=== PATIENT | male | born 1950 | race Caucasian/White ===

== ENCOUNTER → 2016-09-15 | Outpatient (CLI) | payer OTHER ==
[2016-09-15 14:45] LABS: Blood Urea Nitrogen 14 mg/dL (9-20); Non-African American GFR(MDRD) >60 (>60 ml/min/1.73 sqM)
--- NOTE | 2016-09-15 15:30 | CT ---
EXAMINATION TYPE: CT ChestAbdPelvis w con DATE OF EXAM: 09/15/2016 3:18 PM COMPARISON: 06/26/2016 HISTORY: History of lung cancer. Per patient progress check. CT DLP: 1127.2 mGycm CONTRAST: CT scan of the chest, abdomen and pelvis is performed with Oral Contrast and with IV Contrast, patien t injected with 100 mL of Omnipaque 300. CT Chest: LUNGS: Right suprahilar mass with mediastinal invasion is again noted and currently measures 6.5 x 4. 0 x 6.6 cm versus 5.2 x 4.5 x 6.4 cm. Early necrotic changes are felt to be present. Again noted is m arked narrowing of the superior vena cava. There is abrupt cut off of the right upper lobe bronchus. No additional nodules or masses seen. Mild emphysematous changes identified. No evidence for pleural effusion. MEDIASTINUM: Thoracic aorta is of normal caliber. The heart is not enlarged. No evidence for media stinal mass or adenopathy. HILAR STRUCTURES: No evidence for mass. No hilar adenopathy is appreciated. OTHER: No significant abnormality. CONTRAST CT ABDOMEN AND PELVIS FINDINGS: LIVER/GB: Hyperdense lesion at the dome of the liver measures 2.3 cm and appears unchanged relative t o the prior study. No additional space-occupying lesions are seen of the liver. This could reflect a hemangioma or metastatic lesion is not excluded. PANCREAS: No inflammation. No distinct mass. SPLEEN: No splenic enlargement. No lesion seen. ADRENALS: Enlarging left adrenal nodule measures 2.4 cm and is compatible metastatic lesion. KIDNEYS/BLADDER: No hydronephrosis. No nephrolithiasis. Subcentimeter renal cortical cysts noted. B OWEL: Normal appendix. Normal bowel caliber. No inflammation. GENITAL ORGANS: No gross abnormality. LYMPH NODES: No greater than 1cm abdominal or pelvic lymph nodes are appreciated. AORTA: No significant abnormality. OSSEOUS STRUCTURES: No significant abnormality is seen. OTHER: No significant additional abnormality is seen. IMPRESSION: 1. Right suprahilar mass with mediastinal invasion as discussed appears to be slightly larger in the interval. 2. New Left adrenal metastatic lesion noted. 3. Stable enhancing lesion at the dome of the liver could reflect hemangioma. Metastatic deposit is n ot excluded.
== END | disposition home or self-care (01) ==
LOC: RADPROMAIN 13:42
PROVIDERS: ATTEND Internal Medicine Hematology & Oncology
DX: C34.90 Malignant neoplasm of unspecified part of unspecified bronchus or lung (principal); C79.72 Secondary malignant neoplasm of left adrenal gland; K76.9 Liver disease, unspecified
CPT/HCPCS: 82565; 84520; 71260; 74177; Q9967

== ENCOUNTER → 2016-10-07 | Outpatient (CLI) | payer OTHER ==
--- NOTE | 2016-10-08 09:17 | PE ---
EXAMINATION TYPE: PET CT fusion whole body DATE OF EXAM: 10/07/2016 10:13 AM CLINICAL HISTORY: 66-year-old male lung cancer, initial staging. TECHNIQUE: Following the intravenous administration of 15.68 mCi of F-18 FDG, whole body images are performed from the skull base to the midthigh. Images are reviewed on the computer in the coronal, axial, and sagittal planes. Reconstructed rotating images are created on independent workstation and reviewed on the computer. A localization and attenuation correction CT is performed in conjunction with the PET scan. Glucose level: 117 mg/dL COMPARISON: CT 09/15/2016 and 06/26/2016 FINDINGS: PET: Photopenia in the left occipital lobe suggests prior infarct. Near-complete opacification of the right maxillary sinus with associated mild inflammatory FDG uptake . Foci of increased FDG uptake at the left shoulder is suspected to relate to tear of the infraspinatus tendon and rotator cuff tendinopathy. There is some fatty atrophy of the left infraspinatus muscle b sae. Large left suprahilar mass cuts off the right upper lobe bronchus and measures up to 7.4 cm with poss ible invasion of the mediastinum as there is loss of the fat plane with the pulmonary artery and SVC. The mass also has mass effect narrowing the middle lobe bronchus. Very intense hypermetabolism, maxi mal SUV 12. There is nodular post obstructive infiltrate within the right upper lobe that shows minimal inflammat ory FDG uptake. Scattered nonenlarged mediastinal lymph nodes do not show any increased FDG uptake. 1.9 cm hypodense lesion within the hepatic dome shows no discrete FDG uptake suggestive of a cyst. 3.2 cm left adrenal gland mass shows very intense FDG uptake, maximal SUV 16.7. Variable moderate to intense colonic activity and scattered small bowel activity as well likely physi ologic muscular activity. There is increased FDG uptake at the left greater than right gluteal insertions suggesting insertiona l gluteal tendinopathy. ATTENUATION CORRECTION CT: No cervical lymphadenopathy. Mastoid air cells well pneumatized. Right anterior chest wall injection port with catheter tip at the mid SVC level. Heart is normal size without pericardial effusion. Coronary vessel calcifications are present and are a marker for coronary artery disease. Borderline ectasia of the ascending aorta 3.6 cm. No dilated small bowel, free fluid, or free air. Descending colonic diverticulosis without acute dive rticulitis. Mild atherosclerotic calcifications within the abdominal aorta without aneurysm. 3 mm non obstructive calculus right kidney. Bladder is nondistended. Prostate gland mildly enlarged at 4.8 cm wide with calcifications. No abnorm al fluid collection in the pelvis or pelvic lymphadenopathy. Bones: Degenerative changes at the hips and mid to lower lumbar spine with endplate spondylosis mid t o lower thoracic spine. No osseous destructive process. IMPRESSION: 1. 7.4 cm intensely hypermetabolic right suprahilar neoplasm cutting off the right upper lobe bronchu s and narrowing the right middle lobe bronchus. There is mild postobstructive pneumonitis in the righ t upper lobe. 2. Very intensely hypermetabolic 3.2 cm left adrenal gland mass suspicious for metastatic disease. 3. Old left occipital lobe infarct, severe chronic right maxillary sinusitis, descending colonic dive rticulosis, nonobstructive right renal calculus, and mild prostatomegaly.
== END | disposition home or self-care (01) ==
LOC: RADPETMAIN 07:42
PROVIDERS: ATTEND Internal Medicine Hematology & Oncology
DX: C34.11 Malignant neoplasm of upper lobe, right bronchus or lung (principal); J18.9 Pneumonia, unspecified organism; N20.0 Calculus of kidney; N40.0 Benign prostatic hyperplasia without lower urinary tract symptoms
CPT/HCPCS: 78816; A9552

== ENCOUNTER 2016-11-03 11:29 | Emergency (ER) | payer MEDICARE, BC ==
--- NOTE | 2016-11-03 12:28 | ED ---
General Adult HPI - General Chief complaint: Neuro Symptoms/Deficit Stated complaint: loss of vision, Time Seen by Provider: 11/03/16 11:58 Source: patient, family, RN notes reviewed, old records reviewed Mode of arrival: ambulatory Limitations: no limitations - History of Present Illness Initial comments: This is a 66-year-old male to the ER for evaluation of possible perception alteration. Patient states he has history of similar symptoms in the past. Patient has history of CVA TIA. I blood pressure. Patient has no trauma. No fevers or cough congestion. No other neurological deficits besides of depth perception. - Related Data Home Medications Medication Instructions Recorded Confirmed Acetaminophen Tab [Tylenol] 500 mg PO Q4H PRN 11/03/16 11/04/16 Amiodarone [Cordarone] 100 mg PO DAILY 11/03/16 11/04/16 Atorvastatin [Lipitor] 80 mg PO HS 11/03/16 11/04/16 Furosemide [Lasix] 20 mg PO DAILY 11/03/16 11/04/16 Gabapentin [Neurontin] 300 mg PO BID 11/03/16 11/04/16 HYDROcodone/APAP 5-325MG [[place] 1 tab PO Q6HR PRN 11/03/16 11/04/16 5-325] Lisinopril [Zestril] 30 mg PO DAILY 11/03/16 11/04/16 Prochlorperazine [Compazine] 10 mg PO Q6H PRN 11/03/16 11/04/16 Temazepam [Restoril] 15 mg PO HS 11/03/16 11/04/16 metFORMIN HCL 1,000 mg PO BID 11/03/16 11/04/16 Dexamethasone [Hexadrol] 4 mg PO QID 11/04/16 11/04/16 amLODIPine BESYLATE [Norvasc] 5 mg PO DAILY 11/04/16 11/04/16 Allergies Allergy/AdvReac Type Severity Reaction Status Date / Time No Known Allergies Allergy Verified 11/04/16 11:48 Review of Systems ROS Statement: Those systems with pertinent positive or pertinent negative responses have been documented in the HPI. ROS Other: All systems not noted in ROS Statement are negative. Past Medical History Past Medical History: Atrial Fibrillation, Coronary Artery Disease (CAD), CVA/ TIA, Diabetes Mellitus, Hyperlipidemia, Hypertension Additional Past Medical History / Comment(s): LUNG MASS-LUNG CANCER 03/2016 History of Any Multi-Drug Resistant Organisms: None Reported Past Surgical History: No Surgical Hx Reported Past Psychological History: No Psychological Hx Reported Smoking Status: Former smoker Past Alcohol Use History: None Reported Past Drug Use History: None Reported General Exam Limitations: no limitations General appearance: alert, in no apparent distress Head exam: Present: atraumatic, normocephalic, normal inspection Eye exam: Present: normal appearance, PERRL, EOMI. Absent: scleral icterus, conjunctival injection, periorbital swelling ENT exam: Present: normal exam, mucous membranes moist Neck exam: Present: normal inspection. Absent: tenderness, meningismus, lymphadenopathy Respiratory exam: Present: normal lung sounds bilaterally. Absent: respiratory distress, wheezes, rales, rhonchi, stridor Cardiovascular Exam: Present: regular rate, normal rhythm, normal heart sounds. Absent: systolic murmur, diastolic murmur, rubs, gallop, clicks GI/Abdominal exam: Present: soft, normal bowel sounds. Absent: distended, tenderness, guarding, rebound, rigid Extremities exam: Present: normal inspection, full ROM, normal capillary refill. Absent: tenderness, pedal edema, joint swelling, calf tenderness Back exam: Present: normal inspection Neurological exam: Present: alert, oriented X3, CN II-XII intact Psychiatric exam: Present: normal affect, normal mood Skin exam: Present: warm, dry, intact, normal color. Absent: rash Course Vital Signs 11/03/16 11/03/16 11/03/16 11:39 13:15 14:26 Temperature 98.5 F 98.0 F Pulse Rate 87 91 81 Respiratory 16 18 20 Rate Blood Pressure 178/78 161/95 162/83 O2 Sat by Pulse 94 L 96 96 Oximetry - Reevaluation(s) Reevaluation #1: Patient is not having any worsening of neurological deficit, able to ambulate Medical Decision Making - Medical Decision Making 66 male here with known stage IV CVA, patient states that he has known cancer, he is terminal and is now an 8 treatment and is now be staying in the hospital. Discussed with patient's family and patient regarding symptoms, patient will follow-up with his oncologist as directed - Lab Data Result diagrams: 11/03/16 12:24 11/03/16 12:24 Lab Results 03/11/03/16 11/03/16 Range/Units 12:24 12:24 12:24 WBC 6.6 (3.8-10.6) k/uL RBC 3.74 L (4.30-5.90) m/uL Hgb 13.0 (13.0-17.5) gm/dL Hct 39.6 (39.0-53.0) % MCV 105.8 H (80.0-100.0) fL MCH 34.7 (25.0-35.0) pg MCHC 32.8 (31.0-37.0) g/dL RDW 12.9 (11.5-15.5) % Plt Count 200 (150-450) k/uL Neutrophils % 69 % Lymphocytes % 18 % Monocytes % 7 % Eosinophils % 2 % Basophils % 1 % Neutrophils # 4.6 (1.3-7.7) k/uL Lymphocytes # 1.2 (1.0-4.8) k/uL Monocytes # 0.5 (0-1.0) k/uL Eosinophils # 0.1 (0-0.7) k/uL Basophils # 0.0 (0-0.2) k/uL Macrocytosis Slight PT (9.0-12.0) sec INR (<1.1) APTT (22.0-30.0) sec Sodium 141 (137-145) mmol/L Potassium 4.3 (3.5-5.1) mmol/L Chloride 99 (98-107) mmol/L Carbon Dioxide 29 (22-30) mmol/L Anion Gap 13 mmol/L BUN 14 (9-20) mg/dL Creatinine 0.92 (0.66-1.25) mg/dL Est GFR (MDRD) Af Amer >60 (>60 ml/min/1.73 sqM) Est GFR (MDRD) Non-Af >60 (>60 ml/min/1.73 sqM) Glucose 97 (74-99) mg/dL Calcium 9.5 (8.4-10.2) mg/dL Phosphorus 4.0 (2.5-4.5) mg/dL Magnesium 1.7 (1.6-2.3) mg/dL Total Bilirubin 0.8 (0.2-1.3) mg/dL AST 22 (17-59) U/L ALT 29 (21-72) U/L Alkaline Phosphatase 116 (38-126) U/L Total Creatine Kinase 72 (55-170) U/L CK-MB (CK-2) 1.1 (0.0-2.4) ng/mL CK-MB (CK-2) Rel Index 1.5 Troponin I <0.012 (0.000-0.034) ng/mL Total Protein 8.5 H (6.3-8.2) g/dL Albumin 4.4 (3.5-5.0) g/dL 11/03/16 Range/Units 12:24 WBC (3.8-10.6) k/uL RBC (4.30-5.90) m/uL Hgb (13.0-17.5) gm/dL Hct (39.0-53.0) % MCV (80.0-100.0) fL MCH (25.0-35.0) pg MCHC (31.0-37.0) g/dL RDW (11.5-15.5) % Plt Count (150-450) k/uL Neutrophils % % Lymphocytes % % Monocytes % % Eosinophils % % Basophils % % Neutrophils # (1.3-7.7) k/uL Lymphocytes # (1.0-4.8) k/uL Monocytes # (0-1.0) k/uL Eosinophils # (0-0.7) k/uL Basophils # (0-0.2) k/uL Macrocytosis PT 10.4 (9.0-12.0) sec INR 1.0 (<1.1) APTT 25.9 (22.0-30.0) sec Sodium (137-145) mmol/L Potassium (3.5-5.1) mmol/L Chloride (98-107) mmol/L Carbon Dioxide (22-30) mmol/L Anion Gap mmol/L BUN (9-20) mg/dL Creatinine (0.66-1.25) mg/dL Est GFR (MDRD) Af Amer (>60 ml/min/1.73 sqM) Est GFR (MDRD) Non-Af (>60 ml/min/1.73 sqM) Glucose (74-99) mg/dL Calcium (8.4-10.2) mg/dL Phosphorus (2.5-4.5) mg/dL Magnesium (1.6-2.3) mg/dL Total Bilirubin (0.2-1.3) mg/dL AST (17-59) U/L ALT (21-72) U/L Alkaline Phosphatase (38-126) U/L Total Creatine Kinase (55-170) U/L CK-MB (CK-2) (0.0-2.4) ng/mL CK-MB (CK-2) Rel Index Troponin I (0.000-0.034) ng/mL Total Protein (6.3-8.2) g/dL Albumin (3.5-5.0) g/dL - Radiology Data Radiology results: report reviewed (CT brain is positive for brain metastasis), image reviewed Disposition Clinical Impression: Brain metastasis Disposition: HOME SELF-CARE Condition: Good Instructions: Self Care Measures With Cancer (ED) Referrals: Jassi Simmons DO [Primary Care Provider] - 1-2 days
[2016-11-03 12:44] LABS: Basophils % (A) 1 %; CH 35.1; CHCM 33.3; Eosinophils # (A) 0.1 k/uL (0-0.7); Eosinophils % (A) 2 %; HCT 39.6 % (39.0-53.0); HDW 2.38; Luc # (Auto) 0.27; Luc % (Auto) 4; Lymphocytes # (A) 1.2 k/uL (1.0-4.8); Lymphocytes % (A) 18 %; MCH 34.7 pg (25.0-35.0); MCHC 32.8 g/dL (31.0-37.0); MCV 105.8 fL (80.0-100.0); Macrocytosis Slight; Mean Platelet Volume 7.3; Monocytes # (A) 0.5 k/uL (0-1.0); Monocytes % (A) 7 %; Neutrophils # (A) 4.6 k/uL (1.3-7.7); Neutrophils % (A) 69 %; RBC 3.74 m/uL (4.30-5.90); RDW 12.9 % (11.5-15.5); WBC 6.6 k/uL (3.8-10.6); WBC (Perox) 6.56
[2016-11-03 12:49] LABS: Partial Thromboplastin Time 25.9 sec (22.0-30.0); Prothrombin Time 10.4 sec (9.0-12.0)
[2016-11-03 12:59] LABS: ALT 29 U/L (21-72); AST 22 U/L (17-59); Alkaline Phosphatase 116 U/L (38-126); Anion Gap 13 mmol/L; Blood Urea Nitrogen 14 mg/dL (9-20); Calcium 9.5 mg/dL (8.4-10.2); Carbon Dioxide 29 mmol/L (22-30); Chloride 99 mmol/L (98-107); Glucose 97 mg/dL (74-99); Magnesium 1.7 mg/dL (1.6-2.3); Non-African American GFR(MDRD) >60 (>60 ml/min/1.73 sqM); Potassium 4.3 mmol/L (3.5-5.1); Sodium 141 mmol/L (137-145); Total Bilirubin 0.8 mg/dL (0.2-1.3); Total Protein 8.5 g/dL (6.3-8.2)
[2016-11-03 13:03] LABS: Creatine Kinase 72 U/L (55-170)
[2016-11-03 13:15] LABS: Creatine Kinase MB 1.1 ng/mL (0.0-2.4); Troponin I <0.012 ng/mL (0.000-0.034)
--- NOTE | 2016-11-03 13:30 | CT ---
EXAMINATION TYPE: CT brain wo con DATE OF EXAM: 11/03/2016 1:20 PM COMPARISON: Prior brain MRI April, head CT 28 March 2016 HISTORY: c/o vision loss, weakness CT DLP: 1072.3 mGycm Automated exposure control for dose reduction was used. FINDINGS: The area of low attenuation in the medial aspect of the left occipital lobe is again noted. There is a new dense focus present at the posterior parietal location with surrounding low attenuation compati ble with local edema and mass. The mass measures 3.5 cm in diameter and there is mass effect on the l eft lateral ventricle. There is effacement of the overlying sulci. No evident hydrocephalus. Opacification right maxillary sinus is present. Inflammatory change also present in the ethmoid air c ells on the right. The orbits show symmetric appearance. IMPRESSION: There is a new mass in the posterior parietal region on the left. Results relayed to Dr. Mcgarry, tel ephonically at the time of interpretation exam
[2016-11-03] MEDS ORDERED: DEXAMETHASONE SOD PHOSPHATE 10 MG/ML 1 ML VIAL IV STA (14:16)
[2016-11-03 14:27] VITALS: BP 162/83; PULSE 81; RESP 20; TEMP 98
== END 2016-11-03 14:32 | disposition home or self-care (01) ==
LOC: EC 11:29
DX: C79.31 Secondary malignant neoplasm of brain (principal); C34.90 Malignant neoplasm of unspecified part of unspecified bronchus or lung; I10 Essential (primary) hypertension; E78.5 Hyperlipidemia, unspecified; I48.91 Unspecified atrial fibrillation; E11.9 Type 2 diabetes mellitus without complications; I25.10 Atherosclerotic heart disease of native coronary artery without angina pectoris; Z87.891 Personal history of nicotine dependence; Z79.84 Long term (current) use of oral hypoglycemic drugs; Z79.899 Other long term (current) drug therapy
CPT/HCPCS: 99284; 36415; 80053; 82550; 82553; 83735; 84100; 84484; 85025; 85610; 85730; 70450; 96374; J1100

== ENCOUNTER 2016-11-03 23:26 | Inpatient (IN) | payer OTHER, MEDICARE ==
--- NOTE | 2016-11-03 23:53 | ED ---
Neuro HPI - General Chief Complaint: Neuro Symptoms/Deficit Stated Complaint: Leg Numbness and Tingling Time Seen by Provider: 11/03/16 23:27 Source: patient, EMS Mode of arrival: EMS Limitations: no limitations - History of Present Illness Is the patient presenting with stroke symptoms?: Yes Last Known Well Date: 11/03/16 Last Known Well Time: 12:00 -: hour(s) Initial Comments: This patient is a 66-year-old man who presents to be evaluated after he started developing some right sided weakness, mainly of the right leg, limiting his ability to walk. The patient had been seen earlier in the day and was found to have probable metastatic cancer to the brain. The patient was started on dexamethasone and did go home. Patient believes that after taking the dexamethasone he started developing these symptoms and returns to be evaluated. The patient also describes having a numb or tingling sensation. No change in vision, speech, swallowing. Location: right leg History of same: No Place: home Severity: mild Quality: weak Improves With: none Worsens With: none - Related Data Home Medications: Home Medications Medication Instructions Recorded Confirmed Acetaminophen Tab [Tylenol Tab] 500 mg PO Q4H PRN 11/03/16 11/04/16 Amiodarone [Cordarone] 100 mg PO DAILY 11/03/16 11/04/16 Atorvastatin [Lipitor] 80 mg PO HS 11/03/16 11/04/16 Furosemide [Lasix] 20 mg PO DAILY 11/03/16 11/04/16 Gabapentin [Neurontin] 300 mg PO BID 11/03/16 11/04/16 HYDROcodone/APAP 5-325MG [[place] 1 tab PO Q6HR PRN 11/03/16 11/04/16 5-325] Lisinopril [Zestril] 30 mg PO DAILY 11/03/16 11/04/16 Prochlorperazine [Compazine] 10 mg PO Q6H PRN 11/03/16 11/04/16 Temazepam [Restoril] 15 mg PO HS 11/03/16 11/04/16 metFORMIN HCL 1,000 mg PO BID 11/03/16 11/04/16 Previous Rx's Medication Instructions Recorded Dexamethasone Oral [Decadron Oral] 10 mg PO Q4HR 7 Days 11/03/16 Allergies/Adverse Reactions: Allergies Allergy/AdvReac Type Severity Reaction Status Date / Time No Known Allergies Allergy Verified 11/03/16 13:03 Review of Systems ROS Statement: Those systems with pertinent positive or pertinent negative responses have been documented in the HPI. ROS Other: All systems not noted in ROS Statement are negative. Constitutional: Denies: fever, chills Eyes: Denies: vision change ENT: Denies: hearing loss Respiratory: Denies: cough, dyspnea Cardiovascular: Denies: chest pain, syncope Gastrointestinal: Denies: abdominal pain, vomiting, diarrhea Genitourinary: Denies: dysuria, hematuria Musculoskeletal: Denies: back pain Skin: Denies: rash Neurological: Reports: weakness (Right lower extremity), paresthesias. Denies: headache, numbness, confusion, abnormal gait General Exam Limitations: no limitations General appearance: alert, in no apparent distress Head exam: Present: atraumatic, normocephalic, normal inspection Eye exam: Present: normal appearance. Absent: scleral icterus, conjunctival injection ENT exam: Present: normal oropharynx Neck exam: Present: normal inspection, full ROM Respiratory exam: Present: normal lung sounds bilaterally. Absent: respiratory distress, wheezes, rales Cardiovascular Exam: Present: regular rate, normal rhythm, normal heart sounds. Absent: systolic murmur, diastolic murmur, rubs, gallop GI/Abdominal exam: Absent: distended, tenderness, guarding, rebound Extremities exam: Present: normal inspection, normal capillary refill. Absent: pedal edema, calf tenderness Back exam: Absent: CVA tenderness (R), CVA tenderness (L) Neurological exam: Present: alert, oriented X3, CN II-XII intact, motor sensory deficit (There is 4 out of 5 strength to the right lower extremity, the left is normal.) Skin exam: Present: warm, dry, intact, normal color. Absent: rash Stroke MDM - Lab Data Result diagrams: 11/04/16 00:01 11/04/16 00:01 Lab Results 11/04/16 11/04/16 11/04/16 Range/Units 00:01 00:01 00:01 WBC 7.3 (3.8-10.6) k/uL RBC 3.83 L (4.30-5.90) m/uL Hgb 13.3 (13.0-17.5) gm/dL Hct 40.7 (39.0-53.0) % MCV 106.4 H (80.0-100.0) fL MCH 34.8 (25.0-35.0) pg MCHC 32.7 (31.0-37.0) g/dL RDW 13.2 (11.5-15.5) % Plt Count 211 (150-450) k/uL Neutrophils % 89 % Lymphocytes % 8 % Monocytes % 2 % Eosinophils % 1 % Basophils % 0 % Neutrophils # 6.5 (1.3-7.7) k/uL Lymphocytes # 0.6 L (1.0-4.8) k/uL Monocytes # 0.1 (0-1.0) k/uL Eosinophils # 0.0 (0-0.7) k/uL Basophils # 0.0 (0-0.2) k/uL Macrocytosis Moderate PT (9.0-12.0) sec INR (<1.1) APTT (22.0-30.0) sec Sodium 139 (137-145) mmol/L Potassium 4.7 (3.5-5.1) mmol/L Chloride 99 (98-107) mmol/L Carbon Dioxide 23 (22-30) mmol/L Anion Gap 17 mmol/L BUN 19 (9-20) mg/dL Creatinine 0.90 (0.66-1.25) mg/dL Est GFR (MDRD) Af Amer >60 (>60 ml/min/1.73 sqM) Est GFR (MDRD) Non-Af >60 (>60 ml/min/1.73 sqM) Glucose 175 H (74-99) mg/dL Calcium 9.8 (8.4-10.2) mg/dL Magnesium 1.8 (1.6-2.3) mg/dL Troponin I <0.012 (0.000-0.034) ng/mL Urine Color Urine Appearance (Clear) Urine pH (5.0-8.0) Ur Specific [place] (1.001-1.035) Urine Protein (Negative) Urine Glucose (UA) (Negative) Urine Ketones (Negative) Urine Blood (Negative) Urine Nitrite (Negative) Urine Bilirubin (Negative) Urine Urobilinogen (<2.0) mg/dL Ur Leukocyte Esterase (Negative) Urine RBC (0-5) /hpf Urine WBC (0-5) /hpf Ur Squamous Epith Cells (0-4) /hpf Urine Mucus (None) /hpf Serum Alcohol <10 mg/dL 11/04/16 11/04/16 Range/Units 00:01 00:19 WBC (3.8-10.6) k/uL RBC (4.30-5.90) m/uL Hgb (13.0-17.5) gm/dL Hct (39.0-53.0) % MCV (80.0-100.0) fL MCH (25.0-35.0) pg MCHC (31.0-37.0) g/dL RDW (11.5-15.5) % Plt Count (150-450) k/uL Neutrophils % % Lymphocytes % % Monocytes % % Eosinophils % % Basophils % % Neutrophils # (1.3-7.7) k/uL Lymphocytes # (1.0-4.8) k/uL Monocytes # (0-1.0) k/uL Eosinophils # (0-0.7) k/uL Basophils # (0-0.2) k/uL Macrocytosis PT 10.6 (9.0-12.0) sec INR 1.0 (<1.1) APTT 23.7 (22.0-30.0) sec Sodium (137-145) mmol/L Potassium (3.5-5.1) mmol/L Chloride (98-107) mmol/L Carbon Dioxide (22-30) mmol/L Anion Gap mmol/L BUN (9-20) mg/dL Creatinine (0.66-1.25) mg/dL Est GFR (MDRD) Af Amer (>60 ml/min/1.73 sqM) Est GFR (MDRD) Non-Af (>60 ml/min/1.73 sqM) Glucose (74-99) mg/dL Calcium (8.4-10.2) mg/dL Magnesium (1.6-2.3) mg/dL Troponin I (0.000-0.034) ng/mL Urine Color Light Yellow Urine Appearance Clear (Clear) Urine pH 5.5 (5.0-8.0) Ur Specific [place] 1.007 (1.001-1.035) Urine Protein Trace H (Negative) Urine Glucose (UA) 4+ H (Negative) Urine Ketones 1+ H (Negative) Urine Blood Small H (Negative) Urine Nitrite Negative (Negative) Urine Bilirubin Negative (Negative) Urine Urobilinogen <2.0 (<2.0) mg/dL Ur Leukocyte Esterase Negative (Negative) Urine RBC 1 (0-5) /hpf Urine WBC 1 (0-5) /hpf Ur Squamous Epith Cells <1 (0-4) /hpf Urine Mucus Rare H (None) /hpf Serum Alcohol mg/dL - Medical Decision Making Patient is 66-year-old man with newly diagnosed metastases to the brain, phoned today. He is developing right lower extremity weakness, and will be admitted to be seen by the oncologist as well as an neurologist. Repeat computed tomography scan does not show any active bleed. - EKG Data -: EKG Interpreted by Me EKG shows normal: sinus rhythm, axis (Normal), intervals (Normal), QRS complexes (Normal), ST-T waves (Normal) Rate: normal (Rate 100 bpm) When compared to previous EKG there are: no significant change Interpretation: normal EKG Past Medical History Past Medical History: Atrial Fibrillation, Coronary Artery Disease (CAD), CVA/ TIA, Diabetes Mellitus, Hyperlipidemia, Hypertension Additional Past Medical History / Comment(s): LUNG MASS-LUNG CANCER 03/2016 History of Any Multi-Drug Resistant Organisms: None Reported Past Surgical History: No Surgical Hx Reported Past Psychological History: No Psychological Hx Reported Smoking Status: Former smoker Past Alcohol Use History: None Reported Past Drug Use History: None Reported - Past Family History Brother(s) Family Medical History: Cancer Additional Family Medical History / Comment(s): Said his brother of cancer but unsure what kind. Course Vital Signs 11/03/16 11/04/16 11/04/16 23:40 01:00 02:42 Temperature 97.2 F L Pulse Rate 95 89 90 Respiratory 18 16 16 Rate Blood Pressure 190/92 139/75 156/75 O2 Sat by Pulse 95 98 98 Oximetry Disposition Clinical Impression: Brain metastasis, Weakness of right leg Disposition: ADMITTED IP TO THIS HOSP Condition: Serious
[2016-11-04 00:07] LABS: Basophils % (A) 0 %; CH 34.8; CHCM 32.8; Eosinophils % (A) 1 %; HCT 40.7 % (39.0-53.0); HDW 2.39; HGB 13.3 gm/dL (13.0-17.5); Luc # (Auto) 0.04; Luc % (Auto) 1; Lymphocytes # (A) 0.6 k/uL (1.0-4.8); Lymphocytes % (A) 8 %; MCH 34.8 pg (25.0-35.0); MCHC 32.7 g/dL (31.0-37.0); MCV 106.4 fL (80.0-100.0); Macrocytosis Moderate; Mean Platelet Volume 6.7; Monocytes # (A) 0.1 k/uL (0-1.0); Monocytes % (A) 2 %; Neutrophils # (A) 6.5 k/uL (1.3-7.7); Neutrophils % (A) 89 %; RBC 3.83 m/uL (4.30-5.90); RDW 13.2 % (11.5-15.5); WBC 7.3 k/uL (3.8-10.6); WBC (Perox) 7.08
[2016-11-04 00:18] LABS: Partial Thromboplastin Time 23.7 sec (22.0-30.0); Prothrombin Time 10.6 sec (9.0-12.0)
[2016-11-04 00:19] LABS: Alcohol <10 mg/dL; Anion Gap 17 mmol/L; Blood Urea Nitrogen 19 mg/dL (9-20); Calcium 9.8 mg/dL (8.4-10.2); Carbon Dioxide 23 mmol/L (22-30); Chloride 99 mmol/L (98-107); Glucose 175 mg/dL (74-99); Magnesium 1.8 mg/dL (1.6-2.3); Non-African American GFR(MDRD) >60 (>60 ml/min/1.73 sqM); Potassium 4.7 mmol/L (3.5-5.1); Sodium 139 mmol/L (137-145)
[2016-11-04 00:37] LABS: Appearance,Urine Clear (Clear); Bilirubin,Urine Negative (Negative); Glucose,Urine (UA) 4+ (Negative); Ketones,Urine 1+ (Negative); Leukocyte Esterase,Urine Negative (Negative); Mucus,Urine Rare /hpf; Nitrite,Urine Negative (Negative); PH, Urine 5.5 (5.0-8.0); Particle Count 403; Protein,Urine Trace (Negative); RBC,Urine 1 /hpf (0-5); Specific Gravity,Urine 1.007 (1.001-1.035); Squamous Epithelial Cell,Urine <1 /hpf (0-4); UA Billing (MACRO vs. MICRO) MICRO; Urobilinogen,Urine <2.0 mg/dL (<2.0); WBC,Urine 1 /hpf (0-5)
--- NOTE | 2016-11-04 00:45 | CT ---
EXAM: CT Head Without Intravenous Contrast. CLINICAL HISTORY: Reason: Pain TECHNIQUE: Axial computed tomography images of the head/brain without intravenous contrast. This CT exam was performed using one or more of the following dose reduction techniques: automated exposure control, adjustment of the mA and/or kV according to patient size, and/or use of iterative reconstruction technique. Dose Length Product (DLP) is 57.4 mGy-cm. Computed Tomography Dose Index (CTDI) is 1029.9 mGy. Coronal and sagittal reformatted images were created and reviewed. Dose Length Product (DLP) is 57.4 mGy-cm. Computed Tomography Dose Index (CTDI) is 1029.9 mGy. COMPARISON: 11/03/2016 FINDINGS: Brain: 3.5 x 2.5 cm hyperdense intraparenchymal mass in left parietal lobe surrounded by moderate amount of vasogenic edema is unchanged. 1.3 cm layer of encephalomalacia in left occipital and limbic lobe. 11 mm intraparenchymal Satellite lesion is suspected, isodense to brain parenchyma in posterior temporal/parietal lobe, best seen on series 7 image 40 and series 3 image 23, may suggest metastasis versus primary neoplasm Ventricles: Unremarkable. No ventriculomegaly. Bones/joints: Unremarkable. No acute fracture. Soft tissues: Unremarkable. Sinuses: Near complete opacification of right maxillary sinus. Moderate amount of opacification in the right ethmoid air cells. Mastoid air cells: Unremarkable as visualized. No mastoid effusion. 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 IMPRESSION: 1. No substantial change. 2. 3.5 x 2.5 cm hyperdense intraparenchymal mass in left parietal lobe surrounded by moderate amount of vasogenic edema is unchanged. Neoplasm /metastasis favors intraparenchymal hemorrhage. 3. 11 mm intraparenchymal satellite lesion is suspected, may suggest metastasis versus primary neoplasm
[2016-11-04] MEDS ORDERED: SODIUM CHLORIDE 0.9% 1,000 ML IV SCH (02:15)
[2016-11-04] MEDS ORDERED: HYDROcodone/APAP 5-325MG 1 EACH TAB PO PRN (02:15)
[2016-11-04] MEDS ORDERED: ACETAMINOPHEN TAB 500 MG TAB PO PRN (02:15)
[2016-11-04] MEDS ORDERED: PROCHLORPERAZINE 10 MG TAB PO PRN (02:15)
[2016-11-04 03:21] LABS: Glucose,Whole Blood 168 mg/dL (75-99)
[2016-11-04 04:01] VITALS: BMI 29.5
[2016-11-04 04:33] VITALS: RESP 18
[2016-11-04] MEDS: DEXAMETHASONE 4 MG TAB PO SCH ×3 (04:51→12:01)
[2016-11-04] MEDS: metFORMIN 500 MG TAB PO SCH ×2 (06:56→17:02)
[2016-11-04 07:04] LABS: Glucose,Whole Blood 166 mg/dL (75-99)
[2016-11-04] MEDS ORDERED: LISINOPRIL 10 MG TAB PO SCH (09:00)
[2016-11-04] MEDS ORDERED: GABAPENTIN 300 MG CAP PO SCH (09:00)
[2016-11-04] MEDS ORDERED: FUROSEMIDE 20 MG TAB PO SCH (09:00)
[2016-11-04] MEDS ORDERED: FAMOTIDINE 20 MG TAB PO SCH (09:00)
[2016-11-04] MEDS ORDERED: AMIODARONE 100 MG TAB PO SCH (09:00)
--- NOTE | 2016-11-04 09:36 | US ---
EXAMINATION TYPE: US carotid duplex BILAT DATE OF EXAM: 11/04/2016 9:14 AM COMPARISON: NONE CLINICAL HISTORY: Stenosis. Disoriented, imbalance, right sided weakness EXAM MEASUREMENTS: RIGHT: Peak Systolic Velocity (PSV) cm/sec ----- Right CCA: 89.9 ----- Right ICA: 88.6 ----- Right ECA: 164.7 ICA/CCA ratio: 1.0 RIGHT: End Diastole cm/sec ----- Right CCA: 19.4 ----- Right ICA: 22.0 ----- Right ECA: 16.0 LEFT: Peak Systolic Velocity (PSV) cm/sec ----- Left CCA: 121.0 ----- Left ICA: 125.8 ----- Left ECA: 114.5 ICA/CCA ratio: 1.0 LEFT: End Diastole cm/sec ----- Left CCA: 14.4 ----- Left ICA: 19.2 ----- Left ECA: 17.6 VERTEBRALS (direction of flow): Right Vertebral: Antegrade Left Vertebral: Antegrade Mild plaque noted bilateral bifurcations and left CCA. Increased velocities noted right ECA. No evide nce of significant stenosis. IMPRESSION: 1. 50-69% BY DIAMETER STENOSIS OF THE PROXIMAL LEFT ICA. 2. ELEVATED FLOW, RIGHT ECA. Criteria for Assigning % of Stenosis / Diameter reduction (Estimation based on the indirect measurements of the internal carotid artery velocities (ICA PSV). 1. Normal (no stenosis)=ICA PSV < 125 cm/s: ratio < 2.0: ICA EDV<40 cm/s. 2. Less than 50% stenosis=ICA PSV < 125 cm/s: ratio < 2.0: ICA EDV<40 cm/s. 3. 50 to 69% stenosis=ICA PSV of 125 to 230 cm/s: ration 2.0 ? 4.0: ICA EDV 40-100 cm/s. 4. Greater than 70% stenosis to near occlusion= ICA PSV > 230 cm/s: ratio > 4.0: ICA EDV > 100 cm/s. 5. Near occlusion= ICA PSV velocities may be low or undetectable: variable ratio and ICA EDV. 6. Total occlusion=unable to detect flow.
--- NOTE | 2016-11-04 16:08 | P.CONS ---
History of Present Illness - Reason for Consult Consult date: 11/04/16 - Chief Complaint Right arm weakness - History of Present Illness This is a 66-year-old male being evaluated by the neurology service for complaints of right-sided weakness. He has a known history of metastatic cancer. His recent PET scan did show metastasis to the brain. These new lesions are in an area consistent with his current symptoms. An ischemic process is not thought to be likely. He was started on some dexamethasone for the vasogenic edema associated with these lesions and has been feeling better. He does have a known right visual field lateral cut from a previous infarct. At the time of my evaluation his right-sided symptoms persist but are improving some. He denies any new neurological symptoms. He has no trouble with speech or swallowing. Review of Systems All systems: negative Constitutional: Reports as per HPI Past Medical History Past Medical History: Atrial Fibrillation, Coronary Artery Disease (CAD), CVA/ TIA, Diabetes Mellitus, Hyperlipidemia, Hypertension Additional Past Medical History / Comment(s): LUNG MASS-LUNG CANCER 03/2016 History of Any Multi-Drug Resistant Organisms: None Reported Past Surgical History: No Surgical Hx Reported Past Anesthesia/Blood Transfusion Reactions: No Reported Reaction Past Psychological History: No Psychological Hx Reported Smoking Status: Former smoker Past Alcohol Use History: None Reported Past Drug Use History: None Reported - Past Family History Brother(s) Family Medical History: Cancer Additional Family Medical History / Comment(s): Said his brother of cancer but unsure what kind. Medications and Allergies Home Medications Medication Instructions Recorded Confirmed Type Acetaminophen Tab [Tylenol Tab] 500 mg PO Q4H PRN 11/03/16 11/04/16 History Amiodarone [Cordarone] 100 mg PO DAILY 11/03/16 11/04/16 History Atorvastatin [Lipitor] 80 mg PO HS 11/03/16 11/04/16 History Furosemide [Lasix] 20 mg PO DAILY 11/03/16 11/04/16 History Gabapentin [Neurontin] 300 mg PO BID 11/03/16 11/04/16 History HYDROcodone/APAP 5-325MG [Marlow 1 tab PO Q6HR PRN 11/03/16 11/04/16 History 5-325] Lisinopril [Zestril] 30 mg PO DAILY 11/03/16 11/04/16 History Prochlorperazine [Compazine] 10 mg PO Q6H PRN 11/03/16 11/04/16 History Temazepam [Restoril] 15 mg PO HS 11/03/16 11/04/16 History metFORMIN HCL 1,000 mg PO BID 11/03/16 11/04/16 History Dexamethasone [Hexadrol] 4 mg PO QID 11/04/16 11/04/16 History amLODIPine BESYLATE [Norvasc] 5 mg PO DAILY 11/04/16 11/04/16 History Allergies Allergy/AdvReac Type Severity Reaction Status Date / Time No Known Allergies Allergy Verified 11/04/16 11:48 Physical Exam Vitals: Vital Signs Temp Pulse Pulse Resp BP BP Pulse Ox 11/04/16 11:29 97.4 F L 105 H 18 134/70 93 L 11/04/16 09:28 97.3 F L 104 H 18 149/75 92 L 11/04/16 04:00 96.4 F L 96 18 134/98 93 L 11/04/16 02:42 90 16 156/75 98 Intake and Output 11/04/16 11/04/16 11/04/16 06:59 14:59 22:59 Intake Total 240 Output Total 400 240 Balance -400 0 Intake: Oral 240 Output: Urine 400 240 Other: Voiding Method Urinal Urinal Weight 90.9 kg - Constitutional General appearance: cooperative, no acute distress - EENT Eyes: abnormal pupil, EOMI, PERRLA, no ptosis ENT: hearing grossly normal - Neck Neck: normal ROM, no rigidity - Respiratory Respiratory: negative: prolonged expiration, prolonged inspiration - Cardiovascular Rhythm: regular - Gastrointestinal General gastrointestinal: no distended, no tenderness - Neurologic Patient is alert awake and oriented 3. Speech and language are normal. Strength is 4+ in right upper extremity. I minus in right lower extremity. Full strength on the left side. Is no facial asymmetry. There is mild dysmetria on the right. There is mild pronator drift on the right. There is no sensory deficit. No seizures or tremors are seen. Results CBC & Chem 7: 11/04/16 00:01 11/04/16 00:01 Labs: Abnormal Lab Results - Last 24 Hours (Table) 11/04/16 11/04/16 Range/Units 03:09 07:01 POC Glucose (mg/dL) 168 H 166 H (75-99) mg/dL Assessment and Plan (1) Right arm weakness Status: Acute (2) Brain metastasis Status: Acute (3) Weakness of right leg Status: Acute Plan: His new neurological symptoms or not felt to be due to an ischemic process, but rather from his new metastatic lesions. Recommend continuation of Decadron to relieve symptoms from the vasogenic edema. Recommend continued follow-up with oncology. I commended physical and occupational therapy. At this point no further neurological workup is warranted. He would be cleared from a neurological standpoint. X I have reviewed the history and physical on the above patient. I have reviewed the above note, and agree.
[2016-11-04 16:30] VITALS: BP 141/70; PULSE 103; TEMP 98.8
--- NOTE | 2016-11-04 16:34 | CONS ---
DATE OF CONSULTATION: 11/04/2016 REASON FOR CONSULTATION: Lung cancer. CHIEF COMPLAINT: Dizzy. Mr. Hardy is a very pleasant 66-year-old gentleman very well-known to our practice, has been under the care of Dr. Mcgregor since March 2016 for stage IV squamous cell carcinoma of the lung. The patient's initial presentation was when he presented to the [facility] with sudden loss of vision on the right side. She had a CT scan of the brain and MRI which were suggestive of bleed in the left posterior temporal lobe, as well as an area of enhancement of the right occipital area. He had a CT scan of the chest, which revealed a large, at least 11 cm tumor in the right upper lobe invading the mediastinum and the right atrium and also there was 2.6 cm right hepatic lesion consistent with metastatic disease. The patient had a biopsy of the right upper lobe mass which was positive for poorly differentiated squamous cell carcinoma of the lung. It was felt that the brain lesion at the present was related to hemorrhagic stroke. Subsequently he improved from it and he was started on systemic treatment with combination of carboplatin and Abraxane and he had total of 6 cycles completed on 08/21/2016. However, a follow-up CAT scan in September 2016 revealed possible disease progression, which led to repeat PET scan, which unfortunately revealed further disease progression and he met with Dr. Mcgregor in the office about 10 days ago and the decision was to proceed with second line immunotherapy with utilization of OPDIVO and he was scheduled to start next week. However, the patient presented to the emergency department yesterday with being dizzy and unsteady when he walks. He had a CT scan of the brain done in the emergency department revealing 3.5 x 2.5 hyperdense intraparenchymal mass in the left parietal lobe associated with vasogenic edema and 1.3 cm and 11 mm intraparenchymal satellite lesions. The patient initially started on Decadron in the emergency department and was sent home. However, he came back with recurrent symptoms and he ended up being admitted to the hospital for management; however, today he feels much better. His neurological symptoms almost completely resolved. His confusion resolved and his unsteady gait has improved and he is doing very well. He denies any headaches. No nausea or vomiting. He is eating well. No significant dyspnea. No dysphagia. No nausea. Bowels working well. No melena, hematochezia, hematuria, hemoptysis, hematemesis or epistaxis. His past medical he has in addition to what is stated above, in regard to stage IV squamous cell carcinoma of the lung, he has hyperlipidemia, hemorrhagic stroke, diabetes and essential hypertension. He had a colonoscopy in the past and lung biopsy as stated above. SOCIAL HISTORY: He smoked from 1970 until 2015. He used to drink, which he quit a while ago. No substance abuse or illicit drug use. FAMILY HISTORY: His mother passed from lung cancer. REVIEW OF SYSTEMS: As stated above, the history of present illness. Medication and allergies were reviewed in his electronic medical record. On physical examination he is alert and oriented x3. He does not appear to be in acute distress at this time. Well-developed, well-nourished. VITAL SIGNS: Blood pressure 134/70. Pulse is 91, respiration 18, temperature 97.4. HEENT: Normocephalic, atraumatic. No obvious icterus. NECK: Supple. No jugular venous distention. CHEST: Equal expansion bilaterally. Lungs are clear to auscultation and percussion. HEART: Regular rate and rhythm. ABDOMEN: Soft. No tenderness, organomegaly or masses. Bowel sounds present. EXTREMITIES: No edema. SKIN: No significant bruises, ecchymosis or petechia. LYMPHATICS: No peripherally enlarged cervical, supraclavicular lymphadenopathy. MUSCULOSKELETAL: Moving all extremities appropriately. No percussion tenderness to the spine or sternum. NEUROLOGIC: There is mildly unsteady gait, but otherwise no significant and obvious motor deficit detected. LABORATORY DATA: WBC 7.3, hemoglobin 13.3, hematocrit 40.7, platelets are 211. Sodium 139, potassium 4.7, chloride 99, CO2 is 23, BUN 19, creatinine 0.9. IMPRESSION: Stage IV squamous cell carcinoma of the lung with diagnostic and therapeutic circumstances as stated above. The patient presenting with new neurological symptoms consistent with new brain metastases. RECOMMENDATIONS: 1. May continue the patient on Decadron; however, reduce dose to 4 mg every 6 hours. 2. Since he is neurologically stable he could be discharged home on oral steroids. 3. Likely he will require repeat brain MRI which is already scheduled for next week and also he has a follow-up appointment with Dr. Mcgregor next week and likely subsequently he will require brain radiation, which could be either stereotactic brain radiation if he has limited brain metastases or whole brain radiation if MRI revealed multiple brain lesions. The above was discussed with the patient. I have answered all his questions. Thank you very much for asking me to participate in the care of this nice gentleman.
--- NOTE | 2016-11-04 17:43 | HP ---
DATE OF ADMISSION: 11/04/2016 CHIEF COMPLAINT: Right-sided weakness. Right arm weakness. HISTORY OF ILLNESS: Mr. Bailey is a 66-year-old man with a known history of lung cancer diagnosed in March 2016, atrial fibrillation, on anticoagulation with Xarelto, came to the hospital with complaints of right-sided weakness. Patient does have a known history of metastatic lung cancer, recent PET scan did show the metastasis to the brain. He was started on dexamethasone for vasogenic edema associated with lesions and has been feeling better. Patient easily came to the ER and went back home and came to the hospital with more worsening symptoms. Patient was started back on his dose of dexamethasone 4 mg q.i.d. Currently, patient started feeling much better now. No headache or dizziness or lightheadedness. No fever. No chills. No chest pain or shortness of breath. REVIEW OF SYSTEMS: CONSTITUTIONAL: No fever. No chills. RESPIRATORY: No cough or sputum production. CARDIOVASCULAR: No chest pain. No short of breath. ABDOMEN: No nausea, vomiting. No abdominal pain. GENITOURINARY: negative. PSYCHIATRY: negative. ENDOCRINE: Negative. SKIN: Negative. MUSCULOSKELETAL: Negative. All other 14 point review of systems negative except as above. Past medical history includes: Atrial fibrillation, paroxysmal; anticoagulation with Xarelto, coronary artery disease, CVA/TIA, diabetes mellitus, hypertension, hyperlipidemia, and lung mass or cancer diagnosed 03/2016. No psychosocial history. PAST SURGICAL HISTORY: None. SOCIAL HISTORY: The patient is a former smoker. Currently denied any smoking; quit several years ago. Denied any alcohol. Denied any drugs or IVDU. FAMILY HISTORY: Denied any history of hypertension or premature heart disease in the family. No known drug allergies. Home medications include: 1. Tylenol. 2. Amiodarone. 3. Lipitor. 4. Lasix. 5. Neurontin. 6. [place] 5. 7. Zestril. 8. ( ). 9. Restoril. 10. Metformin. PHYSICAL EXAMINATION: A 66-year-old male lying in the bed. Awake, alert, oriented, x3 appears to be in no apparent distress. VITALS: Blood pressure is 134/70, pulse 105, respirations 18, temperature afebrile, pulse ox 93% room air. HEENT: Atraumatic, normocephalic. Neck is supple. No JVD. CVS: S1, S2 heard. No murmurs, no gallop, no rub. LUNGS: Bilateral air entry is present. No wheezing. No crackles. Abdomen soft, nontender. Bowel sounds present. [place]: Awake, alert, oriented, x3. Patient has right upper extremity motor strength 4 out of 5. All other extremities 4 out of 5. No focal deficit except as above. EXTREMITIES: No edema. Pulses palpable bilaterally. No clubbing or cyanosis. PSYCHIATRIC: Cooperative. LABORATORY DATA : WBC 7.3, hemoglobin 13.3, platelets are 211, MCV is 106.4, INR 1.0. Sodium 139, potassium 4.7, chloride 99, bicarb is 23, BUN 19, creatinine 0.9, blood sugar is 175. Troponin less than 0.012. Magnesium 1.8. UA negative for infection, serum alcohol less than 10. CT head, no substantial change, 3.5 x 2.5 cm hypodense intraparenchymal mass in the left parietal lobe surrounded by moderate amount of vasogenic edema is unchanged. Metastases versus primary lesion. IMPRESSION: 1. Right arm weakness mostly secondary to metastatic lesion in the left parietal lobe parenchymal lesion. 2. Recent history of lung cancer diagnosed in March 2016. 3. Right leg weakness is improved now. 4. Atrial fibrillation, on anticoagulation with Xarelto, paroxysmal. 5. History of cerebrovascular accident/ transient ischemic attack. No residual weakness now. 6. Hypertension. 7. Hyperlipidemia. 8. Diabetes mellitus, [id number]. DISCUSSION AND PLAN: Patient will be continued on dexamethasone 4 mg q.i.d. as per oncology recommendations. Neurology has seen the patient. PT, OT recommended and continued the Decadron. Patient is cleared for discharge today. Otherwise, the patient is much improved.
[2016-11-04] MEDS ORDERED: DEXAMETHASONE 4 MG TAB PO SCH (18:00)
[2016-11-04] MEDS ORDERED: TEMAZEPAM 15 MG CAP PO SCH (21:00)
[2016-11-04] MEDS ORDERED: ATORVASTATIN 80 MG TAB PO SCH (21:00)
--- NOTE | 2016-11-05 13:22 | DS ---
DATE OF ADMISSION: 11/04/2016 DATE OF DISCHARGE: 11/04/2016 DISCHARGE DIAGNOSES: 1. Right arm and leg weakness secondary to left parietal parenchymal metastatic lesion. 2. Metastatic lung cancer with METs to brain diagnosed in March 2016. 3. Paroxysmal atrial fibrillation. Rate is controlled on anticoagulation with Xarelto. 4. Hypertension, hyperlipidemia. 5. [id number] diabetes, type II. 6. History of cerebrovascular accident/transient ischemic attack. DISCUSSION AND PLAN: The patient will be continued on Decadron. HOSPITAL COURSE: Mr. Bailey is a 66-year-old male with a known history of lung cancer and recently diagnosed with metastasis to the brain, admitted to the hospital with right arm weakness and leg weakness. The patient was started on Decadron 4 mg q.i.d. Oncology and neurology has seen the patient. Recommended to continue with the Decadron now and the patient otherwise, symptomatically much improved now. Hand weakness is much improved. The patient able to ambulate now. Otherwise, recommend continue to taking the medication and follow with Dr. Ocasio as an outpatient. Patient is stable to be discharged home. DISCHARGE PHYSICAL EXAMINATION: A 66-year-old male lying in bed awake, alert and oriented times three. Appears to be in no apparent distress. VITALS: Blood pressure is 141/70, pulse 103, respirations 18, temperature afebrile, pulse ox 92% on room air. Laboratory data reviewed. Discharge physical examination done. Discharge medications include: 1. Tylenol 500 mg p.o. q.4 hourly p.r.n. for pain. 2. Amiodarone 100 mg p.o. daily. 3. Lipitor 80 mg p.o. q.h.s. 4. Lasix 20 mg p.o. daily. 5. Gabapentin 300 mg p.o. b.i.d. 6. [place] 5, 1 tablet p.o. q.6 hourly p.r.n. for pain. 7. Zestril 30 mg p.o. daily. 8. Compazine 10 mg p.o. q.6 hourly for nausea, vomiting. 9. Restoril 15 mg q.h.s. 10. Metformin 1000 mg p.o. b.i.d. 11. Dexamethasone 4 mg p.o. q.i.d. 12. Amlodipine 5 mg p.o. daily. Patient will be discharged home. Follow with Dr. Ocasio as an outpatient. Home with self-care. Activity as tolerated. Heart healthy and diabetic diet.
== END 2016-11-04 17:19 | disposition home or self-care (01) | DRG 54 ==
LOC: EC 23:26 → 6SEL 11-04 02:12
PROVIDERS: ADMIT Internal Medicine; ATTEND Internal Medicine
DX: C79.31 Secondary malignant neoplasm of brain (principal); G93.6 Cerebral edema; C34.90 Malignant neoplasm of unspecified part of unspecified bronchus or lung; I48.0 Paroxysmal atrial fibrillation; E11.9 Type 2 diabetes mellitus without complications; E78.5 Hyperlipidemia, unspecified; I10 Essential (primary) hypertension; I25.10 Atherosclerotic heart disease of native coronary artery without angina pectoris; Z79.01 Long term (current) use of anticoagulants; Z79.84 Long term (current) use of oral hypoglycemic drugs; Z79.899 Other long term (current) drug therapy; Z80.1 Family history of malignant neoplasm of trachea, bronchus and lung; Z86.73 Personal history of transient ischemic attack (TIA), and cerebral infarction without residual deficits; Z87.891 Personal history of nicotine dependence
CPT/HCPCS: 36415; 70450; 80048; 80320; 81001; 83735; 84484; 85025; 85610; 85730; 93005; 93880; 99285

== ENCOUNTER → 2016-11-06 | Outpatient (CLI) | payer OTHER ==
--- NOTE | 2016-11-06 12:18 | MR ---
EXAMINATION TYPE: MR brain wo/w con DATE OF EXAM: 11/06/2016 12:01 PM COMPARISON: NONE HISTORY: Vision problems, abnormal CT, Lung ca TECHNIQUE: Multiplanar, multiecho imaging of the brain was obtained with and without intravenous adm inistration of 20 mL intravenous MultiHance. FINDINGS: Midline structures are unremarkable. There is a normal craniocervical junction. There is some restricted diffusion surrounding the patient's known left parietal tumor. This tumor cortes s areas of high signal within it suggestive of blood. There is marked blooming on the T2 data set sug gesting hemosiderin. There is minimal enhancement. There is a large amount of surrounding vasogenic e fay. There is a smaller, 13 mm lesion in the posterior temporal lobe on the left. No other definite enhanc ing lesions are seen. There is mucoperiosteal thickening involving the right maxillary sinus and there is an air-fluid leve l within left sinus. There are normal vascular flow voids. The orbits are normal. There is no evidence of a CP angle mass lesion. There are scattered high signal FLAIR lesions in the deep White matter tracts of the cerebral hemisph eres. IMPRESSION: 1. AT LEAST 2 LESIONS IN THE POSTERIOR PARIETAL REGION AND THE POSTERIOR TEMPORAL REGION ON THE LEFT HIGHLY SUSPICIOUS FOR METASTASES. 2. ACUTE ON CHRONIC RIGHT MAXILLARY SINUSITIS. 3. SCATTERED, PUNCTATE FLAIR LESIONS IN THE DEEP WHITE MATTER TRACTS OF THE CEREBRAL HEMISPHERES LIKE LY ON THE BASIS OF SMALL VESSEL DISEASE.
== END | disposition home or self-care (01) ==
LOC: RADMRIMAIN 10:46
PROVIDERS: ATTEND Internal Medicine Hematology & Oncology
DX: G93.89 Other specified disorders of brain (principal); I67.82 Cerebral ischemia; C34.90 Malignant neoplasm of unspecified part of unspecified bronchus or lung
CPT/HCPCS: 70553; A9577

== ENCOUNTER 2016-11-28 19:17 | Inpatient (IN) | payer OTHER, MEDICARE, BC ==
[2016-11-28] MEDS ORDERED: SODIUM CHLORIDE 0.9% 1,000 ML IV STA ×3 (19:24→20:45)
[2016-11-28] MEDS ORDERED: SODIUM CHLORIDE 0.9% 500 ML IV STA (19:24)
--- NOTE | 2016-11-28 19:47 | ED ---
General Adult HPI - General Chief complaint: Altered Mental Status Stated complaint: Hyperglycemia Time Seen by Provider: 11/28/16 19:24 Source: patient, EMS, RN notes reviewed, old records reviewed Mode of arrival: EMS Limitations: no limitations - History of Present Illness Initial comments: This is a 66-year-old male ER for reevaluation of altered mental status. Patient was found and acting appropriately. History of diabetes or severely elevated blood sugar. he has history of A. fib diabetes hypertension and high cholesterol. Patient denies any fevers no chest pain or shortness of breath. - Related Data Home Medications Medication Instructions Recorded Confirmed Acetaminophen Tab [Tylenol] 500 mg PO Q4H PRN 11/03/16 11/04/16 Amiodarone [Cordarone] 100 mg PO DAILY 11/03/16 11/04/16 Atorvastatin [Lipitor] 80 mg PO HS 11/03/16 11/04/16 Furosemide [Lasix] 20 mg PO DAILY 11/03/16 11/04/16 Gabapentin [Neurontin] 300 mg PO BID 11/03/16 11/04/16 HYDROcodone/APAP 5-325MG [[place] 1 tab PO Q6HR PRN 11/03/16 11/04/16 5-325] Lisinopril [Zestril] 30 mg PO DAILY 11/03/16 11/04/16 Prochlorperazine [Compazine] 10 mg PO Q6H PRN 11/03/16 11/04/16 Temazepam [Restoril] 15 mg PO HS 11/03/16 11/04/16 metFORMIN HCL 1,000 mg PO BID 11/03/16 11/04/16 Dexamethasone [Hexadrol] 4 mg PO QID 11/04/16 11/04/16 amLODIPine BESYLATE [Norvasc] 5 mg PO DAILY 11/04/16 11/04/16 Allergies Allergy/AdvReac Type Severity Reaction Status Date / Time No Known Allergies Allergy Verified 11/04/16 11:48 Review of Systems ROS Statement: Those systems with pertinent positive or pertinent negative responses have been documented in the HPI. ROS Other: All systems not noted in ROS Statement are negative. Past Medical History Past Medical History: Atrial Fibrillation, Coronary Artery Disease (CAD), CVA/ TIA, Diabetes Mellitus, Hyperlipidemia, Hypertension Additional Past Medical History / Comment(s): LUNG MASS-LUNG CANCER 03/2016 History of Any Multi-Drug Resistant Organisms: None Reported Past Surgical History: No Surgical Hx Reported Past Anesthesia/Blood Transfusion Reactions: No Reported Reaction Past Psychological History: No Psychological Hx Reported Smoking Status: Former smoker Past Alcohol Use History: None Reported Past Drug Use History: None Reported - Past Family History Brother(s) Family Medical History: Cancer Additional Family Medical History / Comment(s): Said his brother of cancer but unsure what kind. General Exam Limitations: no limitations General appearance: alert, anxious, lethargic, in distress Head exam: Present: atraumatic, normocephalic, normal inspection Eye exam: Present: normal appearance, PERRL, EOMI. Absent: scleral icterus, conjunctival injection, periorbital swelling ENT exam: Present: mucous membranes dry Neck exam: Present: normal inspection. Absent: tenderness, meningismus, lymphadenopathy Respiratory exam: Present: normal lung sounds bilaterally. Absent: respiratory distress, wheezes, rales, rhonchi, stridor Cardiovascular Exam: Present: normal rhythm, tachycardia, normal heart sounds. Absent: systolic murmur, diastolic murmur, rubs, gallop, clicks GI/Abdominal exam: Present: soft, normal bowel sounds. Absent: distended, tenderness, guarding, rebound, rigid Extremities exam: Present: normal inspection, full ROM, normal capillary refill. Absent: tenderness, pedal edema, joint swelling, calf tenderness Back exam: Present: normal inspection Neurological exam: Present: alert, oriented X3, CN II-XII intact Psychiatric exam: Present: normal affect, normal mood Skin exam: Present: warm, dry, intact, normal color. Absent: rash Course Vital Signs 11/28/16 19:27 Temperature 96.8 F L Pulse Rate 101 H Respiratory 18 Rate Blood Pressure 130/66 O2 Sat by Pulse 96 Oximetry - Reevaluation(s) Reevaluation #1: 11/28/16 20:47 Patient still feels very weak, lethargic severely dehydrated and thirsty EKG Findings - EKG Comments: EKG Findings:: EKG shows normal sinus rhythm rate 96, ID 150, QRS 80, QTC 449, patient does have some T-wave elevation Medical Decision Making - Medical Decision Making 66 male the ER for evaluation of altered this elevated blood sugar. Severe dehydration and hyponatremia. Patient will be admitted for electrolyte replacement. Controlling her blood sugar - Lab Data Result diagrams: 11/28/16 20:00 11/28/16 20:00 Lab Results 11/28/16 11/28/16 11/28/16 Range/Units 20:00 20:00 20:00 WBC 8.9 (3.8-10.6) k/uL RBC 3.95 L (4.30-5.90) m/uL Hgb 13.6 (13.0-17.5) gm/dL Hct 43.6 (39.0-53.0) % MCV 110.4 H (80.0-100.0) fL MCH 34.4 (25.0-35.0) pg MCHC 31.2 (31.0-37.0) g/dL RDW 12.9 (11.5-15.5) % Plt Count 117 L (150-450) k/uL Neutrophils % 94 % Lymphocytes % 2 % Monocytes % 2 % Eosinophils % 0 % Basophils % 0 % Neutrophils # 8.4 H (1.3-7.7) k/uL Lymphocytes # 0.2 L (1.0-4.8) k/uL Monocytes # 0.2 (0-1.0) k/uL Eosinophils # 0.0 (0-0.7) k/uL Basophils # 0.0 (0-0.2) k/uL Macrocytosis Marked PT 13.4 H (9.0-12.0) sec INR 1.4 (<1.1) APTT 23.5 (22.0-30.0) sec Sodium 121 L (137-145) mmol/L Potassium 5.9 H (3.5-5.1) mmol/L Chloride 89 L (98-107) mmol/L Carbon Dioxide 23 (22-30) mmol/L Anion Gap 9 mmol/L BUN 79 H (9-20) mg/dL Creatinine 1.19 (0.66-1.25) mg/dL Est GFR (MDRD) Af Amer >60 (>60 ml/min/1.73 sqM) Est GFR (MDRD) Non-Af >60 (>60 ml/min/1.73 sqM) Glucose (74-99) mg/dL Calcium 8.4 (8.4-10.2) mg/dL Total Bilirubin 1.0 (0.2-1.3) mg/dL AST 14 L (17-59) U/L ALT 51 (21-72) U/L Alkaline Phosphatase 143 H (38-126) U/L Total Protein 5.6 L (6.3-8.2) g/dL Albumin 2.6 L (3.5-5.0) g/dL Acetone, Qual Negative (Negative) Disposition Clinical Impression: Altered mental status, Delirium due to general medical condition, Hyperglycemia , Dehydration, Hyponatremia Disposition: ADMITTED IP TO THIS HOSP Condition: Fair Referrals: Jassi Simmons DO [Primary Care Provider] - 1-2 days
[2016-11-28 20:18] LABS: Basophils % (A) 0 %; CH 34.3; CHCM 31.1; Eosinophils % (A) 0 %; HCT 43.6 % (39.0-53.0); HDW 2.08; HGB 13.6 gm/dL (13.0-17.5); Luc # (Auto) 0.04; Luc % (Auto) 1; Lymphocytes # (A) 0.2 k/uL (1.0-4.8); Lymphocytes % (A) 2 %; MCH 34.4 pg (25.0-35.0); MCHC 31.2 g/dL (31.0-37.0); MCV 110.4 fL (80.0-100.0); Macrocytosis Marked; Mean Platelet Volume 8.6; Monocytes # (A) 0.2 k/uL (0-1.0); Monocytes % (A) 2 %; Neutrophils # (A) 8.4 k/uL (1.3-7.7); Neutrophils % (A) 94 %; RBC 3.95 m/uL (4.30-5.90); RDW 12.9 % (11.5-15.5); WBC 8.9 k/uL (3.8-10.6); WBC (Perox) 8.61
[2016-11-28 20:33] LABS: ALT 51 U/L (21-72); AST 14 U/L (17-59); Alkaline Phosphatase 143 U/L (38-126); Anion Gap 9 mmol/L; Blood Urea Nitrogen 79 mg/dL (9-20); Calcium 8.4 mg/dL (8.4-10.2); Carbon Dioxide 23 mmol/L (22-30); Chloride 89 mmol/L (98-107); INR 1.4 (<1.1); Non-African American GFR(MDRD) >60 (>60 ml/min/1.73 sqM); Partial Thromboplastin Time 23.5 sec (22.0-30.0); Potassium 5.9 mmol/L (3.5-5.1); Prothrombin Time 13.4 sec (9.0-12.0); Sodium 121 mmol/L (137-145); Total Protein 5.6 g/dL (6.3-8.2)
[2016-11-28 20:44] LABS: Creatine Kinase 21 U/L (55-170)
[2016-11-28] MEDS ORDERED: INSULIN REGULAR 100 UNIT/ML VIAL IV ONE (20:45)
[2016-11-28] MEDS ORDERED: INSULIN REGULAR 100 UNIT/ML VIAL SQ ONE (20:45)
[2016-11-28] MEDS ORDERED: SODIUM CHLORIDE 0.9% 1,000 ML IV ONE (20:48)
[2016-11-28 20:58] LABS: Creatine Kinase MB 0.9 ng/mL (0.0-2.4); Troponin I <0.012 ng/mL (0.000-0.034)
[2016-11-28 20:58] LABS: Appearance,Urine Clear (Clear); Bilirubin,Urine Negative (Negative); Glucose,Urine (UA) 4+ (Negative); Ketones,Urine Trace (Negative); Leukocyte Esterase,Urine Negative (Negative); Nitrite,Urine Negative (Negative); Protein,Urine Negative (Negative); UA Billing (MACRO vs. MICRO) CHEM; Urobilinogen,Urine <2.0 mg/dL (<2.0)
[2016-11-28 21:57] LABS: Glucose,Whole Blood >600 mg/dL (75-99)
[2016-11-28 22:38] LABS: Glucose,Whole Blood 507 mg/dL (75-99)
[2016-11-28 23:53] LABS: Glucose,Whole Blood 494 mg/dL (75-99)
[2016-11-29 00:04] LABS: Hemoglobin A1C 9.4 % (4.2-6.1)
[2016-11-29 07:29] LABS: Glucose,Whole Blood 353 mg/dL (75-99)
[2016-11-29] MEDS ORDERED: INSULIN LISPRO (humaLOG) 300 UNIT/3 ML VIAL SQ SCH ×2 (07:30→17:30)
[2016-11-29] MEDS ORDERED: ENOXAPARIN 40 MG/0.4 ML SYRINGE SQ SCH (09:00)
[2016-11-29] MEDS: HYDROmorphone 1 MG/ML 1 ML SYRINGE IVP PRN ×2 (10:00→15:25)
[2016-11-29] MEDS ORDERED: DEXAMETHASONE 4 MG TAB PO SCH (10:15)
--- NOTE | 2016-11-29 10:29 | XR ---
EXAMINATION TYPE: XR chest 1V DATE OF EXAM: 11/29/2016 10:23 AM HISTORY: Shortness of breath. COMPARISON: None. TECHNIQUE: Single view of the chest is submitted. FINDINGS: Demonstrated are scattered senescent parenchymal change. MediPort catheter is appropriately placed. Right suprahilar masslike density is noted. The left lung is clear. The heart is stable. Hilar and mediastinal structures are within normal limits. Degenerative changes are seen of the dorsal spine. IMPRESSION: 1. Right suprahilar masslike density is noted.
--- NOTE | 2016-11-29 10:53 | CT ---
EXAMINATION TYPE: CT brain wo con DATE OF EXAM: 11/29/2016 10:40 AM HISTORY: METS. AMS CT DLP: 1029.90 mGycm. Automated Exposure Control for Dose Reduction was Utilized. TECHNIQUE: CT scan of the head is performed without contrast. COMPARISON: CT scan of brain November 04, 2016. MRI brain 01/03/2017. FINDINGS: There is no acute intracranial hemorrhage or midline shift identified. There is diffuse v entricular and sulcal prominence consistent with diffuse age-related cerebral atrophy. There is redem onstration of oval hyperdense lesion left parietal occipital region measuring 3.3 x 2.5 cm on current study image 58 fairly similar in size to prior study image 39 though there is more heterogeneous hyp odense central portion identified. There is surrounding hypodensity in the white matter consistent wi th vasogenic edema that has similar appearance to prior study. There is old area of infarct involving the inferior medial left occipital lobe redemonstrated. Smaller satellite lesion near superior aspec t of infarct seen best on MRI is less well-seen on this CT. The globes are intact bilaterally. Ther e is patchy opacification involving posterior right ethmoid sinuses now present. There is air-fluid l evel in right maxillary sinus which is diminished opacity from prior exam. IMPRESSION: No acute intracranial hemorrhage or midline shift. There is mild diffuse age-related ce rebral atrophy redemonstrated. There is redemonstration of old left medial occipital lobe infarct. Th ere is stable size hyperdense or hemorrhagic metastatic lesion left parietal occipital lobe superior to this. Smaller satellite lesions more conspicuous on current study near this level. Persistent righ t maxillary sinus disease noted.
[2016-11-29 11:06] LABS: Glucose,Whole Blood 351 mg/dL (75-99)
[2016-11-29 11:42] VITALS: BMI 30.8
[2016-11-29] MEDS ORDERED: DEXAMETHASONE SOD PHOSPHATE 4 MG/ML 1 ML VIAL IV SCH (12:00)
[2016-11-29] MEDS ORDERED: INSULIN REGULAR BOLUS (FROM DRIP BAG) IV ONE (12:09)
[2016-11-29] MEDS: amLODIPine 5 MG TAB PO SCH (12:30)
[2016-11-29] MEDS: AMIODARONE 100 MG TAB PO SCH (12:31)
[2016-11-29] MEDS: levETIRAcetam 500 MG TAB PO SCH ×2 (12:31→20:30)
[2016-11-29] MEDS: GABAPENTIN 300 MG CAP PO SCH ×2 (12:31→20:30)
[2016-11-29] MEDS: LEVOFLOXACIN 500 MG TAB PO SCH (12:32)
[2016-11-29] MEDS: LISINOPRIL 10 MG TAB PO SCH (12:32)
[2016-11-29] MEDS ORDERED: INSULIN REGULAR 100 UNIT in SODIUM CHLORIDE 0.9% 100 ML IV SCH (13:00)
[2016-11-29] MEDS ORDERED: DEXAMETHASONE SOD PHOSPHATE 4 MG/ML 1 ML VIAL IV PRN (13:01)
[2016-11-29] MEDS: INSULIN LISPRO (humaLOG) 300 UNIT/3 ML VIAL SQ SCH ×2 (14:14→17:20)
[2016-11-29 14:51] LABS: Glucose,Whole Blood 237 mg/dL (75-99)
[2016-11-29 15:20] LABS: Glucose,Whole Blood 207 mg/dL (75-99)
--- NOTE | 2016-11-29 16:23 | CT ---
EXAMINATION TYPE: CT brain wo con DATE OF EXAM: 11/29/2016 4:12 PM HISTORY: mets, mass CT DLP: 1147 mGycm. Automated Exposure Control for Dose Reduction was Utilized. TECHNIQUE: CT scan of the head is performed without contrast. COMPARISON: CT scan of brain from earlier today. FINDINGS: There is no acute intracranial hemorrhage or midline shift identified. There is diffuse v entricular and sulcal prominence consistent with diffuse age-related cerebral atrophy. There is rede monstration of oval heterogeneous hyperdense lesion left parietal occipital region measuring 3.0 x 2. 5 cm on current study image 15 fairly similar in size to prior study image 38. It is slightly more hy perdense on current study. There is surrounding hypodensity in the white matter consistent with vasog enic edema that has similar appearance to prior study. There is old area of infarct involving the inf erior medial left occipital lobe redemonstrated. Smaller satellite lesion near superior aspect of lef t-sided infarct seen best on MRI is less well-seen on this CT. The globes are intact bilaterally. Vag ue area of low-attenuation right occipital lobe on axial image 33 suspicious for old lacunar infarct is stable. There is patchy opacification involving posterior right ethmoid sinuses redemonstrated. Th ere is air-fluid level in right maxillary sinus which is redemonstrated. IMPRESSION: No acute intracranial hemorrhage or midline shift. There is mild diffuse age-related ce rebral atrophy redemonstrated with old left-sided infarct. Hemorrhagic metastatic lesion left parieta l occipital lobe with local mass effect is stable in size.
[2016-11-29 16:46] LABS: Basophils % (A) 0 %; CH 34.3; Eosinophils % (A) 0 %; HCT 37.7 % (39.0-53.0); HDW 1.89; HGB 11.7 gm/dL (13.0-17.5); Luc # (Auto) 0.01; Luc % (Auto) 0; Lymphocytes # (A) 0.2 k/uL (1.0-4.8); Lymphocytes % (A) 3 %; MCH 33.5 pg (25.0-35.0); MCHC 31.1 g/dL (31.0-37.0); MCV 107.8 fL (80.0-100.0); Macrocytosis Moderate; Mean Platelet Volume 7.9; Monocytes # (A) 0.1 k/uL (0-1.0); Monocytes % (A) 2 %; Neutrophils # (A) 6.6 k/uL (1.3-7.7); Neutrophils % (A) 95 %; RDW 13.3 % (11.5-15.5)
[2016-11-29 16:54] LABS: Anion Gap 4 mmol/L; Blood Urea Nitrogen 47 mg/dL (9-20); Calcium 7.9 mg/dL (8.4-10.2); Carbon Dioxide 24 mmol/L (22-30); Chloride 103 mmol/L (98-107); Glucose 159 mg/dL (74-99); Non-African American GFR(MDRD) >60 (>60 ml/min/1.73 sqM); Potassium 4.7 mmol/L (3.5-5.1); Sodium 131 mmol/L (137-145)
[2016-11-29 17:14] LABS: Glucose,Whole Blood 146 mg/dL (75-99)
[2016-11-29] MEDS: HYDROcodone/APAP 5-325MG 1 EACH TAB PO PRN ×2 (17:38→23:52)
[2016-11-29] MEDS: metFORMIN 500 MG TAB PO SCH (17:39)
[2016-11-29 19:16] LABS: Glucose,Whole Blood 126 mg/dL (75-99)
--- NOTE | 2016-11-29 19:55 | HP ---
DATE OF ADMISSION: 11/28/2016 CHIEF COMPLAINT: Change in mental status and weakness. HISTORY OF PRESENT ILLNESS: This 66-year-old gentleman with a past medical history of atrial fibrillation, CAD, CVA, TIA, diabetes mellitus, hypertension, hyperlipidemia, has had lung cancer with brain metastases since 03/2016. The patient had multiple brain metastases. Patient had an old stroke also. The patient is no longer receiving radiation therapy, which was finished a few weeks ago. The family noted that the patient was confused, with complaints of weakness and pain in the legs. So the patient came to [facility]. Blood sugar was found to be elevated. Patient has been started on insulin at this time. Patient is also on dexamethasone. Patient is followed by Dr. Salazar in the outpatient setting. Currently the patient is drowsy, unable to give a coherent history. Most of the history is taken from my discussion with staff, review of the chart, and discussion with multiple members of the family at the bedside. PAST MEDICAL HISTORY: 1. History of lung cancer with brain metastases, on radiation. 2. Atrial fibrillation. 3. CAD. 4. CVA, TIA. 5. Diabetes mellitus, type 2. 6. Hypertension. 7. Hyperlipidemia. HOME MEDICATIONS: 1. Keppra 500 mg p.o. b.i.d. 2. Levaquin 500 mg p.o. daily. 3. Metformin 1000 mg p.o. b.i.d. 4. Norvasc 5 mg p.o. daily. 5. Ambien 5 mg at bedtime p.r.n. 6. Compazine 10 mg q.6 p.r.n. 7. Zestril 30 mg daily. 8. [place] 5 mg q.6 p.r.n. 9. Neurontin 300 mg p.o. b.i.d. 10. Hexadrol 4 mg daily. 11. Lipitor 80 mg. 12. Cordarone 100 mg daily. 13. Tylenol 500 mg q.4 p.r.n. ALLERGIES: NONE. FAMILY HISTORY: History of cancer in the family. SOCIAL HISTORY: Previous history of smoking. No history of alcohol intake. Review of systems could not be taken at length because of patient's change in mental status. PHYSICAL EXAMINATION: Pulse is 72, blood pressure 118/70, respiration 20, temperature 97.1. Pulse ox 96% on 2 L. HEENT: Conjunctivae normal. Oral mucosa moist. NECK: Obese. CARDIOVASCULAR SYSTEM: S1, S2 muffled. RESPIRATORY SYSTEM: Breath sounds diminished at the bases. Bilateral scattered rhonchi and crackles. Expiratory wheezing also present. ABDOMEN: Soft, obese, nontender. No mass palpable. LEGS: No edema. No swelling. NERVOUS SYSTEM: Diffusely weak. SKIN: No ulcer, rash, bleeding. LYMPHATICS: No lymph node palpable in neck, axillae or groin. JOINTS: No active deforming arthropathy. LABS: Glucose 494, 353, 351, 337. WBC 8.9, hemoglobin 13.6. Sodium 121, potassium 5.9. Other labs are noted. Albumin 2.6. CT scan personally reviewed. ASSESSMENT: 1. Change in mental status, multifactorial, possibly acute metabolic encephalopathy. 2. Uncontrolled diabetes mellitus, type 2, without any evidence of ketosis. 3. Lung cancer with brain metastases. 4. Old left medial occipital lobe infarct. 5. Possible hemorrhagic metastatic lesion on the left parotid occipital lobe, which is stable. 6. Atrial fibrillation. 7. History of coronary artery disease. 8. Cerebrovascular accident, transient ischemic attack. 9. Diabetes mellitus, type 2. 10. Hypertension, essential. 11. Hyperlipidemia. 12. History of nicotine dependence. 13. FULL CODE. 14. Obesity. 15. Hyponatremia. 16. Hyperkalemia. 17. Hypochloremia. 18. Increased BUN. 19. Hypoalbuminemia with mild to moderate protein-calorie malnutrition. RECOMMENDATIONS AND DISCUSSION: In this 66-year-old gentleman who presented with multiple complex medical issues, we will monitor the patient closely, continue the current medication, continue with symptomatic treatment. Otherwise, at this time I recommend insulin drip. Consult Neurology and Hematology/Oncology. Prognosis guarded because of multiple complex medical issues. Further recommendations to follow. See orders for further details. Discussed with the family at length. A copy of this dictation is being forwarded to Dr. Simmons, who is the primary physician. The change in mental status is felt to be multifactorial.
[2016-11-29 20:16] LABS: Glucose,Whole Blood 163 mg/dL (75-99)
[2016-11-29] MEDS: ATORVASTATIN 80 MG TAB PO SCH (20:30)
--- NOTE | 2016-11-29 21:27 | P.CONS ---
History of Present Illness - Reason for Consult Consult date: 11/29/16 metastatic squamous cell lung cancer Requesting physician: Jasper Mcgarry - Chief Complaint AMS - History of Present Illness Mr. Elin ching is a very pleasant 66-year-old male patient of Dr. Mcgregor with a history of stage IV squamous cell lung cancer diagnosed in March 2016. Patient presented at that time was sudden vision loss on the right , CT of the brain and MRI suggested bleed in the left posterior temporal lobe, area of enhancement in the right occipital. CT of the chest showed an 11 cm tumor in the right upper lobe invading the mediastinum and the right atrium. There was also hepatic lesion. Patient had a biopsy of the right upper lobe lung mass, positive for poorly differentiated squamous cell carcinoma. Lesion in the brain was felt to be related to hemorrhagic stroke as patient symptoms improved over a period of time. He was started on treatment with carboplatin and Abraxane, he had a total of 6 cycles completed 08/21/2016. Treatment follow -up CAT scan in September showed possible disease progression, PET scan was performed confirmed disease progression. Patient was to start new therapy when he presented to the hospital about a week before treatment with complaints of dizziness and unsteadiness. CT of the brain showed a 3.5 x 2.5 hypodense intraparenchymal mass in the left parietal lobe with vasogenic edema and 2 satellite lesions. Patient was started on steroids, he has completed radiation treatment-I believe the patient had stereotactic and not whole brain radiation but I will have to confirm that. He is status post 2 cycles of nivolumab currently. Patient was brought to the hospital for altered mental status, found to have a blood sugar greater than 600 on admission. He is currently laying in bed, resting comfortably, patient denied any nausea, shortness of breath, pain, hunger or need to go to the bathroom. Review of Systems ROS unobtainable: due to mental status Past Medical History Past Medical History: Atrial Fibrillation, Coronary Artery Disease (CAD), CVA/ TIA, Diabetes Mellitus, Hyperlipidemia, Hypertension Additional Past Medical History / Comment(s): LUNG MASS-LUNG CANCER 03/2016 History of Any Multi-Drug Resistant Organisms: None Reported Past Surgical History: No Surgical Hx Reported Past Anesthesia/Blood Transfusion Reactions: No Reported Reaction Past Psychological History: No Psychological Hx Reported Smoking Status: Former smoker Past Alcohol Use History: None Reported Past Drug Use History: None Reported - Past Family History Brother(s) Family Medical History: Cancer Additional Family Medical History / Comment(s): Said his brother of cancer but unsure what kind. Medications and Allergies Home Medications Medication Instructions Recorded Confirmed Type Acetaminophen Tab [Tylenol] 500 mg PO Q4H PRN 11/03/16 11/28/16 History Amiodarone [Cordarone] 100 mg PO DAILY 11/03/16 11/28/16 History Atorvastatin [Lipitor] 80 mg PO HS 11/03/16 11/28/16 History Gabapentin [Neurontin] 300 mg PO BID 11/03/16 11/28/16 History HYDROcodone/APAP 5-325MG [[place] 1 tab PO Q6HR PRN 11/03/16 11/28/16 History 5-325] Lisinopril [Zestril] 30 mg PO DAILY 11/03/16 11/28/16 History Prochlorperazine [Compazine] 10 mg PO Q6H PRN 11/03/16 11/28/16 History metFORMIN HCL 1,000 mg PO BID 11/03/16 11/28/16 History Dexamethasone [Hexadrol] 4 mg PO DAILY 11/04/16 11/28/16 History amLODIPine BESYLATE [Norvasc] 5 mg PO DAILY 11/04/16 11/28/16 History Levofloxacin [Levaquin] 500 mg PO DAILY 11/28/16 11/28/16 History Zolpidem [Ambien] 5 mg PO HS PRN 11/28/16 11/28/16 History levETIRAcetam [Keppra] 500 mg PO BID 11/28/16 11/28/16 History Allergies Allergy/AdvReac Type Severity Reaction Status Date / Time No Known Allergies Allergy Verified 11/28/16 20:59 Physical Exam Vitals: Vital Signs Temp Pulse Pulse Resp BP BP Pulse Ox 11/29/16 16:00 87 16 11/29/16 08:00 87 16 11/29/16 07:00 97.7 F 87 16 135/66 95 11/28/16 23:54 98.4 F 89 16 115/70 97 11/28/16 23:19 97.1 F L 72 20 118/70 96 11/28/16 21:23 98 18 110/61 98 Intake and Output 11/29/16 11/29/16 11/29/16 06:59 14:59 22:59 Intake Total 2500 910 20.158 Output Total 550 Balance 1950 910 20.158 Intake: Amount of Fluid Infused ( 2500 ml) Intake, IV Titration 710 20.158 Amount Insulin Regular 100 unit 10 20.158 In Sodium Chloride 0.9% 100 ml @ Titrate IV .Q0M TERRIE Rx#:[id number] Sodium Chloride 0.9% 1, 50 000 ml @ 100 mls/hr IV . Q10H ONE Rx#:[id number] Sodium Chloride 0.9% 1, 650 000 ml @ 100 mls/hr IV . Q10H STA Rx#:[id number] Oral 200 Output: Urine 550 Other: Voiding Method Urinal Urinal Urinal # Voids 1 1 # Bowel Movements 1 0 0 Weight 94.801 kg 94.801 kg Patient Weight 11/30/16 06:59 Weight 94.801 kg - Constitutional General appearance: cooperative, no acute distress, obese - EENT dry mucous membranes - Neck Neck: no lymphadenopathy - Respiratory Respiratory: bilateral: diminished - Cardiovascular Rhythm: irregularly irregular Heart sounds: normal: S1, S2 leg Peripheral Edema: bilateral: Trace - Gastrointestinal General gastrointestinal: no absent bowel sounds, no decreased bowel sounds, no distended, no hepatomegaly, no hyperactive bowel sounds, normal bowel sounds, no organomegaly, no rigid, no scaphoid, soft, no splenomegaly, no tenderness, no umbilical hernia, no ventral hernia - Musculoskeletal Musculoskeletal: generalized weakness - Psychiatric patient is pleasantly confused, he knows his name, he did remember me but, not by name, he knows he is in the hospital, otherwise not clear on recent events why he is in the hospital. Results CBC & Chem 7: 11/29/16 16:30 11/29/16 16:30 Labs: Abnormal Lab Results - Last 24 Hours (Table) 11/28/16 11/28/16 11/28/16 Range/Units 21:56 22:37 23:49 RBC (4.30-5.90) m/uL Hgb (13.0-17.5) gm/dL Hct (39.0-53.0) % MCV (80.0-100.0) fL Plt Count (150-450) k/uL Lymphocytes # (1.0-4.8) k/uL Sodium (137-145) mmol/L BUN (9-20) mg/dL Creatinine (0.66-1.25) mg/dL Glucose (74-99) mg/dL POC Glucose (mg/dL) >600 H 507 H 494 H (75-99) mg/dL Calcium (8.4-10.2) mg/dL 11/29/16 11/29/16 11/29/16 Range/Units 07:27 11:03 14:32 RBC (4.30-5.90) m/uL Hgb (13.0-17.5) gm/dL Hct (39.0-53.0) % MCV (80.0-100.0) fL Plt Count (150-450) k/uL Lymphocytes # (1.0-4.8) k/uL Sodium (137-145) mmol/L BUN (9-20) mg/dL Creatinine (0.66-1.25) mg/dL Glucose (74-99) mg/dL POC Glucose (mg/dL) 353 H 351 H 237 H (75-99) mg/dL Calcium (8.4-10.2) mg/dL 11/29/16 11/29/16 11/29/16 Range/Units 15:17 16:30 16:30 RBC 3.50 L (4.30-5.90) m/uL Hgb 11.7 L (13.0-17.5) gm/dL Hct 37.7 L (39.0-53.0) % MCV 107.8 H (80.0-100.0) fL Plt Count 97 L (150-450) k/uL Lymphocytes # 0.2 L (1.0-4.8) k/uL Sodium 131 L (137-145) mmol/L BUN 47 H (9-20) mg/dL Creatinine 0.65 L (0.66-1.25) mg/dL Glucose 159 H (74-99) mg/dL POC Glucose (mg/dL) 207 H (75-99) mg/dL Calcium 7.9 L (8.4-10.2) mg/dL 11/29/16 11/29/16 11/29/16 Range/Units 17:08 19:12 20:12 RBC (4.30-5.90) m/uL Hgb (13.0-17.5) gm/dL Hct (39.0-53.0) % MCV (80.0-100.0) fL Plt Count (150-450) k/uL Lymphocytes # (1.0-4.8) k/uL Sodium (137-145) mmol/L BUN (9-20) mg/dL Creatinine (0.66-1.25) mg/dL Glucose (74-99) mg/dL POC Glucose (mg/dL) 146 H 126 H 163 H (75-99) mg/dL Calcium (8.4-10.2) mg/dL CT Scan - head: report reviewed Assessment and Plan (1) Metastatic squamous cell carcinoma Status: Chronic (2) Brain metastasis Status: Chronic Plan: Patient is currently receiving nivolumab immunotherapy treatment for his non- small squamous cell carcinoma. Immunotherapy does have the potential to cause metabolic derangements/metabolic endocrinopathy secondary to immune system activation. She is currently being treated for ketoacidosis, with significant blood sugar improvement. we'll follow with the patient's labs, he will need to be reevaluated prior to resuming any therapy. No acute intervention from an oncology standpoint at this time. CT of the brain, reports reviewed, overall stable disease noted.
[2016-11-29 22:15] LABS: Glucose,Whole Blood 126 mg/dL (75-99)
[2016-11-29 23:38] LABS: Glucose,Whole Blood 143 mg/dL (75-99)
[2016-11-30 01:28] LABS: Glucose,Whole Blood 132 mg/dL (75-99)
[2016-11-30 02:33] LABS: Glucose,Whole Blood 124 mg/dL (75-99)
[2016-11-30 07:18] LABS: Glucose,Whole Blood 154 mg/dL (75-99)
[2016-11-30] MEDS: LISINOPRIL 10 MG TAB PO SCH (08:20)
[2016-11-30] MEDS: AMIODARONE 100 MG TAB PO SCH (08:21)
[2016-11-30] MEDS: metFORMIN 500 MG TAB PO SCH ×2 (08:21→17:07)
[2016-11-30] MEDS: LEVOFLOXACIN 500 MG TAB PO SCH (08:21)
[2016-11-30] MEDS: amLODIPine 5 MG TAB PO SCH (08:21)
[2016-11-30] MEDS: GABAPENTIN 300 MG CAP PO SCH ×2 (08:21→21:48)
[2016-11-30] MEDS: levETIRAcetam 500 MG TAB PO SCH ×2 (08:22→21:48)
--- NOTE | 2016-11-30 08:36 | CONS ---
DATE OF CONSULTATION: 11/29/2016 CHIEF COMPLAINT: Altered mental status. HISTORY OF PRESENT ILLNESS: Mr. Bailey is a 66-year-old male who is being evaluated today on 11/29/16 by the neurology service per the request of Dr. Cancino for altered mental status. The patient was brought into [facility] after he was found to be significantly confused. The patient does have history of lung cancer with brain metastasis according to the nursing staff. A CT scan of the brain was done, which showed left occipital stroke which appears to be old. There was also a hemorrhagic metastatic lesion in the left parietal lobe. The patient was admitted for further workup and management. I did repeat his CT scan of the brain, which showed no changes in the size of the hemorrhage. The CBC showed mild anemia with a hemoglobin of 11.7 and thrombocytopenia at 97,000. His basic metabolic profile showed mild hyponatremia at 131 and elevated BUN at 47. His serum glucose was greater than 600 and his ketones were negative. The patient was started on an insulin drip and admitted for further workup and management. His urinalysis did show 4+ glucose with no evidence of any urinary tract infection. At the time of my evaluation, he is lying in his bed and appears to be in pain. He reports pain in his lower extremities. He denies any headache and he is more awake and alert at this time. No seizure-like activity has been reported. PAST MEDICAL HISTORY: Lung cancer with brain mets, atrial fibrillation, coronary artery disease, stroke, diabetes, hypertension, dyslipidemia. SOCIAL HISTORY: The patient is a former smoker. He denies any alcohol or drug use. FAMILY HISTORY: Positive for cancer. HOME MEDICATIONS: Reviewed in the chart. ALLERGIES: No known drug allergies. REVIEW OF SYSTEMS: CONSTITUTIONAL: Positive for fatigue. EYES: Negative. ENT: Negative. CARDIOVASCULAR: Negative. RESPIRATORY: Positive for occasional shortness of breath and as mentioned above. NEUROLOGICAL: As mentioned above. He also reports generalized weakness. He denies any numbness or headache. GASTROINTESTINAL: Positive for occasional heartburn. GENITOURINARY: Negative. MUSCULOSKELETAL: Positive for joint pain. DERMATOLOGICAL: Negative. ENDOCRINE: Positive for diabetes. PSYCHIATRIC: Negative. PHYSICAL EXAM: Vital signs show a temperature of 97.7, pulse 87, respirations 16, blood pressure 135/66. GENERAL APPEARANCE: The patient is a well-developed male who appears to be in mild distress due to pain. HEENT: Normocephalic, atraumatic, no facial asymmetry is seen. Extraocular muscles are intact. Neck is supple with no masses felt. CARDIOVASCULAR: Regular rate and rhythm. ABDOMEN: Nontender, nondistended. Extremities showed trace edema with no clubbing seen. NEUROLOGICAL EXAM: The patient is awake and oriented to person and place. He did know it was the year 2017 but he could not recall the month. Strength is 4 minus out of 5 in bilateral lower extremities and 5 minus out of 5 in bilateral upper extremities. Sensory exam was normal to light touch in all 4 extremities. No facial asymmetry is seen. No seizure-like activity is noticed. Postural tremors are seen. IMPRESSION: 1. Altered mental status. 2. Acute metabolic encephalopathy. 3. History of lung cancer with brain metastasis. 4. History of ischemic stroke. 5. Atrial fibrillation. 6. Uncontrolled diabetes. RECOMMENDATIONS: The patient's altered mental status is likely due to his uncontrolled diabetes. His serum glucose was greater than 600 on arrival. He has been started on an insulin drip and appears to be better at this time. There was concerns regarding the hemorrhagic metastasis to the brain. I did repeat his CT scan of the brain, which showed no changes. Oncology has been consulted. I will order an EEG. Prognosis is guarded. I will continue to follow with you. Further recommendations to follow. Thank you for allowing me to participate in the care of your patient. If you have any questions, please feel free to contact me.
[2016-11-30] MEDS: HYDROmorphone 1 MG/ML 1 ML SYRINGE IVP PRN ×3 (09:37→22:19)
[2016-11-30] MEDS: INSULIN LISPRO (humaLOG) 300 UNIT/3 ML VIAL SQ SCH ×4 (10:19→22:19)
--- NOTE | 2016-11-30 11:19 | XR ---
EXAMINATION TYPE: XR abdomen acute w cxr DATE OF EXAM: 11/30/2016 11:10 AM COMPARISON: Chest x-ray 11/29/2016 HISTORY: Abdominal pain, cough, history of lung cancer TECHNIQUE: Abdomen is examined in supine upright views and supplemented with a frontal chest. FINDINGS: Normal colonic bowel gas is present. No free air is present. No suspicious differential air -fluid levels are present. No mass effect is evident. Organomegaly is not evident. Psoas margins are normal. There is a right suprahilar mass. Consolidations in the right upper lobe. Port is present on the righ t with the tip in the superior vena cava region. Remaining portions the lungs are clear. IMPRESSION: 1. Chest findings are stable and compatible with the patient's reported lung cancer. 2. No acute changes within the abdomen.
[2016-11-30 13:05] LABS: Glucose,Whole Blood 228 mg/dL (75-99)
[2016-11-30] MEDS: HYDROcodone/APAP 5-325MG 1 EACH TAB PO PRN (13:20)
[2016-11-30] MEDS: PANTOPRAZOLE 40 MG/10 ML VIAL IVP SCH ×2 (13:20→21:48)
[2016-11-30 14:46] LABS: Basophils % (A) 0 %; CH 33.8; CHCM 31.4; Eosinophils % (A) 1 %; HCT 38.9 % (39.0-53.0); HDW 1.93; HGB 12.1 gm/dL (13.0-17.5); Luc # (Auto) 0.06; Luc % (Auto) 1; Lymphocytes # (A) 0.4 k/uL (1.0-4.8); Lymphocytes % (A) 6 %; MCH 33.7 pg (25.0-35.0); MCHC 31.1 g/dL (31.0-37.0); MCV 108.1 fL (80.0-100.0); Macrocytosis Moderate; Monocytes # (A) 0.1 k/uL (0-1.0); Monocytes % (A) 2 %; Neutrophils # (A) 6.3 k/uL (1.3-7.7); Neutrophils % (A) 91 %; RDW 13.2 % (11.5-15.5); WBC (Perox) 7.36
[2016-11-30 14:48] LABS: ALT 42 U/L (21-72); AST 17 U/L (17-59); Alkaline Phosphatase 81 U/L (38-126); Anion Gap 5 mmol/L; Blood Urea Nitrogen 27 mg/dL (9-20); Calcium 7.9 mg/dL (8.4-10.2); Carbon Dioxide 23 mmol/L (22-30); Chloride 103 mmol/L (98-107); Glucose 209 mg/dL (74-99); Non-African American GFR(MDRD) >60 (>60 ml/min/1.73 sqM); Potassium 4.5 mmol/L (3.5-5.1); Sodium 131 mmol/L (137-145); Total Bilirubin 0.9 mg/dL (0.2-1.3); Total Protein 4.7 g/dL (6.3-8.2)
[2016-11-30 17:17] LABS: Glucose,Whole Blood 204 mg/dL (75-99)
[2016-11-30] MEDS ORDERED: INSULIN GLARGINE 100 UNIT/ML 10 ML VIAL SQ SCH (18:00)
[2016-11-30] MEDS: INSULIN GLARGINE 100 UNIT/ML 10 ML VIAL SQ SCH (18:08)
[2016-11-30] MEDS ORDERED: HYDROmorphone 1 MG/ML 1 ML SYRINGE IM STA (18:19)
[2016-11-30 21:06] LABS: Glucose,Whole Blood 182 mg/dL (75-99)
--- NOTE | 2016-11-30 21:39 | P.PN ---
Subjective Principal diagnosis: 1. Mental status changes 2. Weakness Patient is a 66-year-old male with a medical history of atrial fibrillation, CAD , CVA, TIA, diabetes mellitus, hypertension, hyperlipidemia lung cancer with metastasis to the brain in March 2016. Patient had multiple brain metastasis. Patient had an old stroke also. Patient is no longer receiving radiation therapy which was finished a few weeks ago. Family noted the patient was confused, complaints of weakness and pain in his legs. Patient came to the ED. Blood sugar was found to be extremely elevated. Patient has been started on insulin. Patient is also on dexamethasone. Patient is followed by Dr. Camilo on the outpatient setting. Currently the patient is drowsy, but able to communicate. At initial contact today, the patient was supine in bed, intermittently drowsy and in no acute distress. Objective - Vital Signs Vital signs: Vital Signs Temp 97.7 F 11/30/16 15:00 Pulse 94 11/30/16 15:00 Resp 16 11/30/16 15:00 BP 129/64 11/30/16 15:00 Pulse Ox 96 11/30/16 15:00 Intake & Output 11/30/16 11/30/16 12/01/16 06:59 18:59 06:59 Intake Total 413.317 560 Output Total 1450 840 Balance -1036.683 -280 Weight 94.801 kg Intake: IV 400 320 0.9 320 Sodium Chloride 0.9% 1, 400 000 ml @ 100 mls/hr IV . Q10H [facility] Rx#:[id number] Intake, IV Titration 13.317 Amount Insulin Regular 100 unit 13.317 In Sodium Chloride 0.9% 100 ml @ Titrate IV .Q0M [facility] Rx#:[id number] Oral 240 Output: Urine 1450 840 Uretheral (Luna) 900 840 Other: Voiding Method Urinal Indwelling Catheter # Voids 1 - Exam Constitutional: AOx2, cooperative HEENT: NC/AT, no facial asymmetry is seen. Neck: Supple, no masses Respiratory: No increased work of breathing Cardiac: Regular rate and Rhythm GI: non tender, non distended Musculoskeletal: Tufting Creeler strengths are equal bilaterally 3/5, Lower extremity strengths are equal bilaterally at 3/5. Neurological: diffusely weak Integementary: no rash, no erythema Psychiatric: mood and affect appropriate - Constitutional Constitutional Comment(s): all systems unless noted above in HPI are negative - Labs CBC & Chem 7: 11/30/16 13:12 11/30/16 13:12 Labs: Abnormal Lab Results - Last 24 Hours (Table) 11/29/16 11/29/16 11/30/16 Range/Units 22:12 23:21 01:17 RBC (4.30-5.90) m/uL Hgb (13.0-17.5) gm/dL Hct (39.0-53.0) % MCV (80.0-100.0) fL Plt Count (150-450) k/uL Lymphocytes # (1.0-4.8) k/uL Sodium (137-145) mmol/L BUN (9-20) mg/dL Creatinine (0.66-1.25) mg/dL Glucose (74-99) mg/dL POC Glucose (mg/dL) 126 H 143 H 132 H (75-99) mg/dL Calcium (8.4-10.2) mg/dL Total Protein (6.3-8.2) g/dL Albumin (3.5-5.0) g/dL 11/30/16 11/30/16 11/30/16 Range/Units 02:19 07:17 13:04 RBC (4.30-5.90) m/uL Hgb (13.0-17.5) gm/dL Hct (39.0-53.0) % MCV (80.0-100.0) fL Plt Count (150-450) k/uL Lymphocytes # (1.0-4.8) k/uL Sodium (137-145) mmol/L BUN (9-20) mg/dL Creatinine (0.66-1.25) mg/dL Glucose (74-99) mg/dL POC Glucose (mg/dL) 124 H 154 H 228 H (75-99) mg/dL Calcium (8.4-10.2) mg/dL Total Protein (6.3-8.2) g/dL Albumin (3.5-5.0) g/dL 11/30/16 11/30/16 11/30/16 Range/Units 13:12 13:12 17:14 RBC 3.60 L (4.30-5.90) m/uL Hgb 12.1 L (13.0-17.5) gm/dL Hct 38.9 L (39.0-53.0) % MCV 108.1 H (80.0-100.0) fL Plt Count 96 L (150-450) k/uL Lymphocytes # 0.4 L (1.0-4.8) k/uL Sodium 131 L (137-145) mmol/L BUN 27 H (9-20) mg/dL Creatinine 0.60 L (0.66-1.25) mg/dL Glucose 209 H (74-99) mg/dL POC Glucose (mg/dL) 204 H (75-99) mg/dL Calcium 7.9 L (8.4-10.2) mg/dL Total Protein 4.7 L (6.3-8.2) g/dL Albumin 2.2 L (3.5-5.0) g/dL 11/30/16 Range/Units 20:12 RBC (4.30-5.90) m/uL Hgb (13.0-17.5) gm/dL Hct (39.0-53.0) % MCV (80.0-100.0) fL Plt Count (150-450) k/uL Lymphocytes # (1.0-4.8) k/uL Sodium (137-145) mmol/L BUN (9-20) mg/dL Creatinine (0.66-1.25) mg/dL Glucose (74-99) mg/dL POC Glucose (mg/dL) 182 H (75-99) mg/dL Calcium (8.4-10.2) mg/dL Total Protein (6.3-8.2) g/dL Albumin (3.5-5.0) g/dL Assessment and Plan (1) Hypertension Status: Acute (2) Hyperlipidemia Status: Acute (3) Obesity Status: Acute (4) Electrolyte abnormality Status: Acute (5) Altered mental status Status: Acute (6) Dehydration Status: Acute (7) Hyperglycemia Status: Acute (8) Brain metastasis Status: Chronic Plan: patient presents with multiple complex medical issues. Continue with current symptomatic treatment. Continued recommendation for hematology oncology consultation and recommendations. Prognosis guarded/poor because of the multiple complex medical issues. Mental status changes multifactorial. CT of the brain noted stable metastasis with no new acute process. EEG has been completed but results are pending. It is neurology's understanding that there is a plan of care meeting tomorrow at 1400 hrs with family. Status: Neurology will continue to follow on an as-needed basis. Prognosis is guarded/poor given the patient's significant multifactorial etiology and lack of improvement. I discussed the patient's pertinent medical information with Dr. Wilson. He agrees with the plan of care as implemented.
[2016-11-30] MEDS: DEXAMETHASONE 4 MG TAB PO SCH (21:48)
[2016-11-30] MEDS: DOCUSATE 100 MG CAP PO SCH (21:48)
[2016-11-30] MEDS: ATORVASTATIN 80 MG TAB PO SCH (21:48)
--- NOTE | 2016-11-30 22:34 | PN ---
DATE OF SERVICE: 11/30/2016 This 66-year-old gentleman with a past medical history of multiple medical problems was admitted with change in mental status and weakness. Patient has significant history of bronchogenic carcinoma with brain mets. The patient also completed a course of radiation therapy. Patient also on chemotherapy and immunotherapy as well. Patient has uncontrolled diabetes mellitus. After insulin drip, the patient improved significantly, but still patient is mildly confused and patient is being closely monitored. Patient also complains of diffuse abdominal pain as well as bilateral leg pain and aches also. PAST MEDICAL HISTORY: Reviewed. Review of systems could not be taken, as the patient is confused. Current medications are reviewed and include: 1. Tylenol p.r.n. 2. [place] 5 mg every 6 hours p.r.n. 3. Cordarone. 4. Norvasc. 5. Lipitor. 6. Decadron. 7. Neurontin. 8. Dilaudid p.r.n. 9. Lantus. 10. Keppra. 11. Lisinopril. 12. Glucophage. 13. Protonix. 14. Levaquin. PHYSICAL EXAM: The patient is alert and oriented x1. Pulse 94, blood pressure 129/64, respirations 15, temperature 97.7, pulse ox 96% on 2L. HEENT: Conjunctivae normal. NECK: No jugular venous distension. CARDIOVASCULAR: S1 and S2 muffled. RESPIRATORY: Breath sounds diminished in the bases. Scattered rhonchi and crackles. Expiratory wheezing also present. ABDOMEN: Soft, obese, nontender. No guarding. No rigidity. LEGS: No edema. No swelling. NERVOUS SYSTEM: Higher functions as mentioned earlier. Moves all 4 limbs. No focal deficits. LYMPHATIC: No lymphadenopathy in neck, axillae or groins. SKIN: No ulcer, rash or bleeding. LABS: WBC 7, is 12.1. Sodium 131, glucose noted. ASSESSMENT: 1. Change in mental status, multifactorial, possible acute metabolic encephalopathy. 2. Uncontrolled diabetes mellitus type 2 without any evidence for diabetic ketoacidosis. 3. Lung cancer with brain metastases. 4. Old left medial occipital lobe infarct. 5. Possible hemorrhage metastatic lesion in the left parieto-occipital area, which is stable on the recent repeat CT scan. 6. Atrial fibrillation. 7. History of coronary artery disease. 8. Cerebrovascular accident, transient ischemic attack. 9. Diabetes mellitus type 2. 10. Hypertension, essential. 11. Hyperlipidemia. 12. History of nicotine dependence. 13. Obesity. 14. Hyponatremia. 15. Hyperkalemia. 16. Hypochloremia. 17. Increased BUN. 18. Hypoalbuminemia with mild to moderate protein-calorie malnutrition. 19. FULL CODE. RECOMMENDATIONS AND DISCUSSION: In this 66-year-old gentleman who presented with multiple complex medical issues, we will monitor the patient closely. Continue the current medications. Continue symptomatic this. Otherwise, at this time I recommend to follow the patient closely. Initiate Lantus, monitor blood sugars closely. Resume the rest of the medications. Overall prognosis guarded because of multiple complex medical issues, which I discussed at length with the family at the bedside. Doctor of hematology/oncology also they have a family meeting tomorrow. CURRENTLY THE PATIENT IS FULL CODE and we will discuss with Hematology/Oncology regarding the code status and further line of treatment, but if the patient improves and the patient is no code, rehabilitation may be an option. Once again, discussed with family.
[2016-12-01] MEDS ORDERED: FUROSEMIDE 10 MG/ML 4 ML VIAL IV STA ×2 (01:17→03:47)
[2016-12-01] MEDS ORDERED: ALBUTEROL NEBULIZED 2.5 MG/3 ML INHALATION STA (01:17)
[2016-12-01 02:07] LABS: Glucose,Whole Blood 170 mg/dL (75-99)
[2016-12-01] MEDS: INSULIN LISPRO (humaLOG) 300 UNIT/3 ML VIAL SQ SCH ×5 (02:23→21:44)
[2016-12-01] MEDS ORDERED: SCOPOLAMINE 1.5MG/72HR PATCH TRANSDERM STA (03:47)
[2016-12-01] MEDS: GABAPENTIN 300 MG CAP PO SCH ×2 (08:08→21:43)
[2016-12-01] MEDS: metFORMIN 500 MG TAB PO SCH ×2 (08:08→17:34)
[2016-12-01] MEDS: DEXAMETHASONE 4 MG TAB PO SCH (08:08)
[2016-12-01] MEDS: PANTOPRAZOLE 40 MG/10 ML VIAL IVP SCH ×2 (08:08→21:43)
[2016-12-01] MEDS: amLODIPine 5 MG TAB PO SCH (08:09)
[2016-12-01] MEDS: DOCUSATE 100 MG CAP PO SCH ×2 (08:09→21:43)
[2016-12-01] MEDS: LEVOFLOXACIN 500 MG TAB PO SCH (08:09)
[2016-12-01] MEDS: levETIRAcetam 500 MG TAB PO SCH ×2 (08:09→21:43)
[2016-12-01] MEDS: LISINOPRIL 10 MG TAB PO SCH (08:09)
[2016-12-01 08:11] LABS: Glucose,Whole Blood 247 mg/dL (75-99)
[2016-12-01] MEDS: AMIODARONE 200 MG TAB PO SCH (08:11)
[2016-12-01] MEDS: ALBUTEROL NEBULIZED 2.5 MG/3 ML INHALATION SCH ×5 (09:05→19:27)
[2016-12-01 12:24] LABS: Glucose,Whole Blood 209 mg/dL (75-99)
--- NOTE | 2016-12-01 13:11 | XR ---
EXAMINATION TYPE: XR chest 1V portable DATE OF EXAM: 12/01/2016 11:29 AM Comparison: 11/29/2016 Clinical History: 66-year-old male with hypoxia Findings: Right anterior chest wall injection port with catheter tip at the lower SVC. Heart is normal size. Aorta and pulmonary vasculature within normal limits. Redemonstrated mass at the right hilum with volume loss and consolidation involving the right upper l obe. Overall appearance is relatively similar. Some of the opacity in the right upper lobe may be inc reased in the interval. Impression: Right hilar mass with similar postobstructive volume loss in the right upper lobe. Patchy infiltrate in the right upper lobe may be slightly increased in the interval. Otherwise, no significant change i s seen.
[2016-12-01 17:26] LABS: Glucose,Whole Blood 283 mg/dL (75-99)
[2016-12-01] MEDS: INSULIN GLARGINE 100 UNIT/ML 10 ML VIAL SQ SCH (17:34)
--- NOTE | 2016-12-01 18:02 | P.PN ---
Subjective Principal diagnosis: AMS Patient is seen today in follow-up with multiple family members in the room, plan is for family meeting to determine next steps in patient's plan of care. Patient is alert and oriented, he is denying any shortness of breath, nausea, chest pain, difficulty breathing or need to go to the bathroom. Patient is in good spirits. Objective - Vital Signs Vital signs: Vital Signs Temp 97.4 F L 12/01/16 15:00 Pulse 84 12/01/16 15:00 Resp 16 12/01/16 15:00 BP 97/54 12/01/16 15:00 Pulse Ox 96 12/01/16 15:00 Intake & Output 11/30/16 12/01/16 12/01/16 18:59 06:59 18:59 Intake Total 560 200 80 Output Total 840 1825 700 Balance -280 -1625 -620 Intake: IV 320 80 0.9 320 80 Oral 240 200 Output: Urine 840 1825 700 Uretheral (Luna) 840 Other: Voiding Method Indwelling Catheter Indwelling Catheter Indwelling Catheter - Exam well-developed, overweight male laying in bed, he is in no acute distress, he is alert and oriented to self, place, time and situation, respirations are even and unlabored - Labs CBC & Chem 7: 11/30/16 13:12 11/30/16 13:12 Labs: Abnormal Lab Results - Last 24 Hours (Table) 11/30/16 12/01/16 12/01/16 Range/Units 20:12 02:05 07:58 POC Glucose (mg/dL) 182 H 170 H 247 H (75-99) mg/dL 12/01/16 12/01/16 Range/Units 12:12 17:24 POC Glucose (mg/dL) 209 H 283 H (75-99) mg/dL Assessment and Plan (1) Metastatic squamous cell carcinoma Status: Chronic (2) Brain metastasis Status: Chronic Plan: Had a long discussion with the patient and the family. Patient is interested in at least attempting some rehabilitation to see if he can get stronger. We agreed that patient can attempt rehabilitation. If he gets stronger he can be reevaluated for the possibility of treatment. Therapy has been requested to evaluate patient for rehabilitation possibilities. Social Work has been consulted to assist in appropriate placement environment, case was discussed with them as well. Patient and family have made it very clear that they understand if patient declines or does poorly with rehabilitation the plan of care would change to a comfort only type situation. Actually patient and family stated thatonce they leave the hospital they would like to not return to the hospital. This was communicated with the forensic social worker so that the ECF/ rehab pt is admitted to care can be transitioned as appropriate. Patient and family are aware that treatment cannot be continued in a rehabilitation/ECF setting. all questions were answered to the best of my ability
--- NOTE | 2016-12-01 18:55 | PN ---
DATE OF SERVICE: 12/01/2016 HISTORY OF PRESENT ILLNESS: This 66-year-old gentleman who was admitted with change in mental status and metabolic encephalopathy was thought to have multifactorial etiology. The patient also had uncontrolled diabetes mellitus on admission. Patient also had brain metastases and history of CVA also. The patient is being closely monitored. Last night the patient had difficulties in breathing and subsequently with Lasix, the patient improved significantly. The most recent chest x-ray done today showed right hilar and upper lobe lesion also. PAST MEDICAL HISTORY: Reviewed. Review of systems could not be taken. The patient is mildly confused and also on nonrebreather mask at this time. Current medications are reviewed, include: 1. Tylenol 500 mg p.r.n. 2. Ventolin 2.5 q.i.d. 3. Azmacort 100 mg p.o. daily. 4. Norvasc 5 mg daily. 5. Lipitor 80 mg q.h.s. 7. Decadron. 8. Colace 100 mg p.o. b.i.d. 9. Neurontin 300 mg p.o. daily. 10. Dilaudid 1 mg p.o. q.3 p.r.n. 11. Lantus 10 units subcu at bedtime and 12. Humalog. 13. Keppra 500 mg p.o. b.i.d. 14. Levaquin 500 mg p.o. daily. 15. Zestril 30 mg daily. 16. Ativan 1 mg daily p.r.n. 17. Glucovance 1000 mg p.o. b.i.d. 18. Protonix 40 mg IV b.i.d. PHYSICAL EXAM: The patient alert and oriented x3. Pulse 91, blood pressure 120/60, respirations 22, temperature 97.6, pulse ox 96% on 15L. HEENT: Conjunctivae normal. NECK: No jugular venous distension. CARDIOVASCULAR: S1 and S2 muffled. RESPIRATORY: Breath sounds diminished in the bases. Bilateral scattered rhonchi and crackles. ABDOMEN: Soft, nontender. No mass palpable. LEGS: No edema. No swelling. NERVOUS SYSTEM: Diffusely weak. LABS: WBC 7, hemoglobin is 12.1. ASSESSMENT: 1. Change in mental status, multifactorial, possible acute metabolic encephalopathy. 2. Uncontrolled diabetes mellitus type 2 without any evidence for diabetic ketoacidosis. 3. Lung cancer with brain metastases. 4. Old left medical and occipital lobe infarcts. 5. Respiratory difficulties with acute hypoxic respiratory failure, possible chronic obstructive pulmonary disease acute exacerbation. 6. Possible hemorrhagic metastatic lesion in the left parieto-occipital area, which is stable on the recent repeat CT scan. 7. Atrial fibrillation history. 8. History of coronary artery disease. 9. History of cerebrovascular accident and transient ischemic attack. 10. History of diabetes type 2. 11. History of essential hypertension. 12. Hyperlipidemia. 13. History of nicotine dependence. 14. Obesity. 15. Hyponatremia. 16. Hyperkalemia. 17. Hypochloremia. 18. Increased BUN. 19. Hypoalbuminemia with mild to moderate protein-calorie malnutrition. 20. FULL CODE. RECOMMENDATIONS AND DISCUSSION: In this 66-year-old gentleman who presented with multiple complex medical issues, we will monitor the patient closely. Continue the current medications and symptomatic treatment. Otherwise, at this time I would recommend repeat labs, add bronchodilators, continue the rest of the medications. Monitor fluid-electrolyte balance closely. Guarded prognosis because of multiple complex medical issues. Further recommendations to follow. Kept on the IV fluids and also recommend to monitor blood sugars closely. Overall prognosis guarded, which I discussed at length with the family and the family would like to have family meeting with oncology team regarding the code status and continued management. Once again, prognosis guarded. The most recent chest was reviewed personally by me. Further recommendations to follow. MTDD
[2016-12-01 20:33] LABS: Glucose,Whole Blood 291 mg/dL (75-99)
[2016-12-01] MEDS: ATORVASTATIN 80 MG TAB PO SCH (21:43)
[2016-12-01] MEDS: HYDROmorphone 1 MG/ML 1 ML SYRINGE IVP PRN (21:52)
[2016-12-02 02:17] LABS: Glucose,Whole Blood 300 mg/dL (75-99)
[2016-12-02] MEDS: INSULIN LISPRO (humaLOG) 300 UNIT/3 ML VIAL SQ SCH ×5 (02:34→21:49)
[2016-12-02 07:27] LABS: Glucose,Whole Blood 193 mg/dL (75-99)
[2016-12-02] MEDS: LEVOFLOXACIN 500 MG TAB PO SCH (08:47)
[2016-12-02] MEDS: metFORMIN 500 MG TAB PO SCH ×2 (08:47→17:58)
[2016-12-02] MEDS: levETIRAcetam 500 MG TAB PO SCH ×2 (08:48→21:48)
[2016-12-02] MEDS: DOCUSATE 100 MG CAP PO SCH ×2 (08:48→21:48)
[2016-12-02] MEDS: DEXAMETHASONE 4 MG TAB PO SCH (08:48)
[2016-12-02] MEDS: AMIODARONE 200 MG TAB PO SCH (08:48)
[2016-12-02] MEDS: amLODIPine 5 MG TAB PO SCH (08:48)
[2016-12-02] MEDS: GABAPENTIN 300 MG CAP PO SCH ×2 (08:48→21:48)
[2016-12-02] MEDS: PANTOPRAZOLE 40 MG TABLET PO SCH ×2 (08:49→21:49)
[2016-12-02] MEDS: LISINOPRIL 10 MG TAB PO SCH (08:49)
[2016-12-02] MEDS: ALBUTEROL NEBULIZED 2.5 MG/3 ML INHALATION SCH ×4 (10:10→19:40)
[2016-12-02 11:35] LABS: Glucose,Whole Blood 232 mg/dL (75-99)
[2016-12-02 17:30] LABS: Glucose,Whole Blood 293 mg/dL (75-99)
[2016-12-02] MEDS: INSULIN GLARGINE 100 UNIT/ML 10 ML VIAL SQ SCH (17:57)
--- NOTE | 2016-12-02 19:33 | PN ---
DATE OF SERVICE: 12/02/2016 This 66-year-old gentleman who was admitted with change in mental status, multifactorial, with possible acute metabolic encephalopathy, also had the patient uncontrolled diabetes mellitus also. The patient has significant lung cancer with metastases also. The family had a detailed discussion with Hematology/Oncology at this time. Sensorium has improved significantly. We will continue with PT, OT evaluation for possible ECF rehab at this time. No chest pain or palpitation. The patient continues to be NO CODE. On exam, pulse 75, blood pressure 91/56, respirations 18, pulse ox 97% on 2 L. HEENT: Conjunctivae normal. NECK: No JVD. CARDIOVASCULAR: S1 and S2 muffled. LUNGS: Breath sounds diminished in the bases. Bilateral scattered rhonchi and crackles. ABDOMEN: Soft, nontender. EXTREMITIES: No edema. NUCLEAR POWER REACTOR OPERATOR: No focal deficits. LABS: WBC 7, hemoglobin is 12.1. Accu-Cheks noted. ASSESSMENT: 1. Change in mental status, multifactorial, possible acute metabolic encephalopathy. 2. Uncontrolled diabetes mellitus, type 2, without any evidence of diabetic ketoacidosis. 3. Lung cancer with brain metastases. 4. Old left medial and occipital lobe infarcts. 5. Respiratory difficulty with acute hypoxic respiratory failure, possibly chronic obstructive pulmonary disease acute exacerbation, present on admission. 6. Possible hemorrhage or metastatic lesion to the left occipital region, which is stable in the recent repeat CT scan of the brain. 7. Atrial fibrillation history, paroxysmal. 8. History of coronary artery disease. 9. History of cerebrovascular accident, transient ischemic attack. 10. History of diabetes mellitus type 2. 11. History of essential hypertension. 12. Hyperlipidemia. 13. History of nicotine dependence. 14. Obesity. 15. Hyponatremia. 16. Hyperkalemia. 17. Hyperchloremia. 18. Increased BUN. 19. Hypoalbuminemia with mild to moderate protein calorie malnutrition. 20. NO CODE, NO CPR, NO VENT. RECOMMENDATIONS/DISCUSSION: In this 66-year-old gentleman who presented with multiple complex medical issues, we will monitor the patient closely. Continue the current medications and continue symptomatic treatment. Otherwise closely monitor. PT, OT evaluation. The patient is NO CODE. Repeat labs will be ordered. Prognosis guarded because of the multiple complex medical issues. Further recommendations to follow.
[2016-12-02] MEDS: HYDROcodone/APAP 5-325MG 1 EACH TAB PO PRN (19:36)
[2016-12-02 20:16] LABS: Glucose,Whole Blood 284 mg/dL (75-99)
[2016-12-02] MEDS: ATORVASTATIN 80 MG TAB PO SCH (21:48)
[2016-12-03 02:17] LABS: Glucose,Whole Blood 216 mg/dL (75-99)
[2016-12-03] MEDS: INSULIN LISPRO (humaLOG) 300 UNIT/3 ML VIAL SQ SCH ×5 (02:17→21:09)
[2016-12-03 06:57] LABS: Anion Gap 3 mmol/L; Blood Urea Nitrogen 28 mg/dL (9-20); Carbon Dioxide 28 mmol/L (22-30); Chloride 103 mmol/L (98-107); Glucose 159 mg/dL (74-99); Non-African American GFR(MDRD) >60 (>60 ml/min/1.73 sqM); Potassium 4.4 mmol/L (3.5-5.1); Sodium 134 mmol/L (137-145)
[2016-12-03 07:19] LABS: Glucose,Whole Blood 147 mg/dL (75-99)
[2016-12-03 07:28] LABS: Basophils % (A) 1 %; CH 33.5; CHCM 32.2; Eosinophils % (A) 0 %; HCT 33.9 % (39.0-53.0); HDW 1.91; HGB 10.9 gm/dL (13.0-17.5); Luc # (Auto) 0.05; Luc % (Auto) 1; Lymphocytes # (A) 0.5 k/uL (1.0-4.8); Lymphocytes % (A) 9 %; MCH 33.8 pg (25.0-35.0); MCHC 32.3 g/dL (31.0-37.0); MCV 104.4 fL (80.0-100.0); Macrocytosis Slight; Mean Platelet Volume 7.7; Monocytes # (A) 0.2 k/uL (0-1.0); Monocytes % (A) 3 %; Neutrophils # (A) 4.9 k/uL (1.3-7.7); Neutrophils % (A) 86 %; RBC 3.24 m/uL (4.30-5.90); RDW 13.2 % (11.5-15.5); WBC 5.7 k/uL (3.8-10.6); WBC (Perox) 6.37
[2016-12-03] MEDS: ALBUTEROL NEBULIZED 2.5 MG/3 ML INHALATION SCH ×4 (07:41→20:37)
[2016-12-03] MEDS: HYDROcodone/APAP 5-325MG 1 EACH TAB PO PRN ×2 (07:57→14:31)
[2016-12-03] MEDS: AMIODARONE 200 MG TAB PO SCH (07:58)
[2016-12-03] MEDS: metFORMIN 500 MG TAB PO SCH ×2 (07:58→17:41)
[2016-12-03] MEDS: amLODIPine 5 MG TAB PO SCH (07:59)
[2016-12-03] MEDS: DEXAMETHASONE 2 MG TAB PO SCH (07:59)
[2016-12-03] MEDS: DOCUSATE 100 MG CAP PO SCH ×2 (07:59→21:09)
[2016-12-03] MEDS: levETIRAcetam 500 MG TAB PO SCH ×2 (08:00→21:08)
[2016-12-03] MEDS: LEVOFLOXACIN 500 MG TAB PO SCH (08:00)
[2016-12-03] MEDS: GABAPENTIN 300 MG CAP PO SCH ×2 (08:00→21:08)
[2016-12-03] MEDS: PANTOPRAZOLE 40 MG TABLET PO SCH ×2 (08:01→21:08)
[2016-12-03] MEDS: LISINOPRIL 10 MG TAB PO SCH (08:01)
[2016-12-03 11:22] LABS: Glucose,Whole Blood 191 mg/dL (75-99)
--- NOTE | 2016-12-03 15:22 | P.PN ---
Subjective Principal diagnosis: Very weak, sleepy, not eating well, not ambulating. Objective - Vital Signs Vital signs: Vital Signs Temp 97.7 F 12/03/16 07:54 Pulse 82 12/03/16 11:53 Resp 18 12/03/16 11:35 BP 109/61 12/03/16 07:00 Pulse Ox 97 12/03/16 07:00 Intake & Output 12/02/16 12/03/16 12/03/16 18:59 06:59 18:59 Intake Total 1260 Output Total 700 Balance -700 1260 Weight 94.801 kg Intake: IV 80 0.9 80 Oral 1180 Output: Urine 700 Other: Voiding Method Indwelling Catheter Indwelling Catheter Indwelling Catheter # Bowel Movements 1 - Constitutional General appearance: Present: no acute distress - EENT Eyes: Present: PERRLA - Respiratory Respiratory: bilateral: diminished - Cardiovascular Rhythm: regular - Peripheral edema foot Peripheral Edema: bilateral: 3+ - Gastrointestinal General gastrointestinal: Present: soft - Neurologic Neurologic: Present: CNII-XII intact - Musculoskeletal Musculoskeletal: Present: generalized weakness - Psychiatric Psychiatric: Present: A&O x's 3 - Labs CBC & Chem 7: 12/03/16 06:20 12/03/16 06:20 Labs: Abnormal Lab Results - Last 24 Hours (Table) 12/02/16 12/02/16 12/03/16 Range/Units 17:25 20:15 02:16 RBC (4.30-5.90) m/uL Hgb (13.0-17.5) gm/dL Hct (39.0-53.0) % MCV (80.0-100.0) fL Plt Count (150-450) k/uL Lymphocytes # (1.0-4.8) k/uL Sodium (137-145) mmol/L BUN (9-20) mg/dL Creatinine (0.66-1.25) mg/dL Glucose (74-99) mg/dL POC Glucose (mg/dL) 293 H 284 H 216 H (75-99) mg/dL Calcium (8.4-10.2) mg/dL 12/03/16 12/03/16 12/03/16 Range/Units 06:20 06:20 07:17 RBC 3.24 L (4.30-5.90) m/uL Hgb 10.9 L (13.0-17.5) gm/dL Hct 33.9 L (39.0-53.0) % MCV 104.4 H (80.0-100.0) fL Plt Count 122 L (150-450) k/uL Lymphocytes # 0.5 L (1.0-4.8) k/uL Sodium 134 L (137-145) mmol/L BUN 28 H (9-20) mg/dL Creatinine 0.60 L (0.66-1.25) mg/dL Glucose 159 H (74-99) mg/dL POC Glucose (mg/dL) 147 H (75-99) mg/dL Calcium 8.0 L (8.4-10.2) mg/dL 12/03/16 Range/Units 11:20 RBC (4.30-5.90) m/uL Hgb (13.0-17.5) gm/dL Hct (39.0-53.0) % MCV (80.0-100.0) fL Plt Count (150-450) k/uL Lymphocytes # (1.0-4.8) k/uL Sodium (137-145) mmol/L BUN (9-20) mg/dL Creatinine (0.66-1.25) mg/dL Glucose (74-99) mg/dL POC Glucose (mg/dL) 191 H (75-99) mg/dL Calcium (8.4-10.2) mg/dL Assessment and Plan (1) Altered mental status Status: Acute (2) Metastatic squamous cell carcinoma Status: Chronic (3) Brain metastasis Status: Chronic Plan: 1- Discussed clinical progress with patient/family 2- Overall poor prognosis 3- Add [facility] for Rx of anorexia 4- Home Hospice if not improved in next 48 hours > familt agree Answered all questions/concerns
[2016-12-03 17:20] LABS: Glucose,Whole Blood 239 mg/dL (75-99)
[2016-12-03] MEDS: INSULIN GLARGINE 100 UNIT/ML 10 ML VIAL SQ SCH (17:39)
[2016-12-03 20:41] LABS: Glucose,Whole Blood 259 mg/dL (75-99)
[2016-12-03] MEDS: ATORVASTATIN 80 MG TAB PO SCH (21:08)
[2016-12-03] MEDS: ACETAMINOPHEN TAB 500 MG TAB PO PRN (21:47)
--- NOTE | 2016-12-03 22:08 | PN ---
DATE OF SERVICE: 12/03/2016 This 66-year-old gentleman who was admitted with change in mental status, multifactorial, with history of diabetes mellitus type 2, the patient is being closely monitored. The patient also had brain mets also. The patient was slated to go ECF for rehab at this time. No chest pain. No palpitations. On exam, alert and oriented x2. Pulse is 84, blood pressure 113/60, respirations 16, temperature 97.6, pulse ox 97% on 2 L. HEENT: Normal conjunctivae. NECK: No JVD. CARDIOVASCULAR: S1 and S2 muffled. LUNGS: Breath sounds diminished at the bases. Bilateral scattered rhonchi and crackles. ABDOMEN: Soft, nontender. EXTREMITIES: Legs no edema. NERVOUS SYSTEM: Diffusely weak. LABS: Hemoglobin 10.9, platelets 122, sodium is 134. ASSESSMENT: 1. Change in mental status, multifactorial, possible acute metabolic encephalopathy. 2. Uncontrolled diabetes mellitus type 2 without evidence for diabetic ketoacidosis. 3. Lung cancer with brain metastases. 4. 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 5. Respiratory difficulties with acute hypoxic respiratory failure, possibly chronic obstructive pulmonary disease acute exacerbation present on admission. 6. Possible hemorrhagic metastatic lesion in the left occipital region, which is stable on recent repeat CT scan of the brain. 7. Atrial fibrillation, history of paroxysmal. 8. History of coronary artery disease. 9. History of cerebrovascular accident, transient ischemic attack. 10. History of diabetes mellitus type 2. 11. History of essential hypertension. 12. Hyperlipidemia. 13. History of nicotine dependence. 14. Obesity. 15. Hyponatremia. 16. Hyperkalemia. 17. Hypochloremia. 18. Increased BUN. 19. Hypoalbuminemia with mild to moderate protein calorie malnutrition. 20. NO CODE, NO CPR, NO VENT. RECOMMENDATIONS/DISCUSSION: In this 66-year-old gentleman who presented with multiple complex medical issues, we will monitor the patient closely, continue the current medications, continue symptomatic treatment. Otherwise at this time PT and OT evaluation, possible ECF rehab if the patient improves. Continue to monitor. Monitor blood sugars closely. Further recommendations to follow.
[2016-12-03] MEDS: HYDROmorphone 1 MG/ML 1 ML SYRINGE IVP PRN (23:23)
[2016-12-04 02:15] LABS: Glucose,Whole Blood 215 mg/dL (75-99)
[2016-12-04] MEDS: INSULIN LISPRO (humaLOG) 300 UNIT/3 ML VIAL SQ SCH ×5 (02:26→20:13)
[2016-12-04 05:42] LABS: CH 33.6; CHCM 31.9; HCT 35.5 % (39.0-53.0); HDW 1.87; HGB 11.4 gm/dL (13.0-17.5); Immature Gran Flag Moderate; MCHC 32.2 g/dL (31.0-37.0); MCV 105.8 fL (80.0-100.0); Macrocytosis Moderate; Mean Platelet Volume 7.9; RBC 3.35 m/uL (4.30-5.90); RDW 13.2 % (11.5-15.5); WBC 6.1 k/uL (3.8-10.6); WBC (Perox) 6.77
[2016-12-04 06:27] LABS: Add Differential Manual Differential
[2016-12-04 06:32] LABS: Band Neutrophils % 23.5 %; Metamyelocytes % 0.5 %; Nucleated Red Blood Cells 0 /100 WBC (0-0); Total Cells Counted 200
[2016-12-04 06:33] LABS: Manual Review Performed
[2016-12-04 06:50] LABS: Anion Gap 5 mmol/L; Blood Urea Nitrogen 26 mg/dL (9-20); Calcium 8.1 mg/dL (8.4-10.2); Carbon Dioxide 27 mmol/L (22-30); Chloride 103 mmol/L (98-107); Glucose 138 mg/dL (74-99); Non-African American GFR(MDRD) >60 (>60 ml/min/1.73 sqM); Potassium 4.4 mmol/L (3.5-5.1); Sodium 135 mmol/L (137-145)
[2016-12-04 06:55] LABS: Glucose,Whole Blood 110 mg/dL (75-99)
[2016-12-04] MEDS: HYDROmorphone 1 MG/ML 1 ML SYRINGE IVP PRN ×3 (07:59→18:13)
[2016-12-04] MEDS: ALBUTEROL NEBULIZED 2.5 MG/3 ML INHALATION SCH ×5 (08:34→20:42)
[2016-12-04] MEDS: LISINOPRIL 10 MG TAB PO SCH (08:54)
[2016-12-04] MEDS: DEXAMETHASONE 2 MG TAB PO SCH (08:54)
[2016-12-04] MEDS: metFORMIN 500 MG TAB PO SCH ×2 (08:54→18:07)
[2016-12-04] MEDS: levETIRAcetam 500 MG TAB PO SCH ×2 (08:55→20:12)
[2016-12-04] MEDS: GABAPENTIN 300 MG CAP PO SCH ×2 (08:55→20:12)
[2016-12-04] MEDS: AMIODARONE 200 MG TAB PO SCH (08:55)
[2016-12-04] MEDS: DOCUSATE 100 MG CAP PO SCH ×2 (08:56→20:12)
[2016-12-04] MEDS: amLODIPine 5 MG TAB PO SCH (08:56)
[2016-12-04] MEDS: MEGESTROL 400 MG/10 ML CUP PO SCH (08:56)
[2016-12-04] MEDS: PANTOPRAZOLE 40 MG TABLET PO SCH ×2 (08:59→20:13)
[2016-12-04] MEDS: LEVOFLOXACIN 500 MG TAB PO SCH (08:59)
[2016-12-04 11:22] LABS: Glucose,Whole Blood 124 mg/dL (75-99)
[2016-12-04] MEDS: ACETAMINOPHEN TAB 500 MG TAB PO PRN (14:22)
[2016-12-04 17:20] LABS: Glucose,Whole Blood 218 mg/dL (75-99)
[2016-12-04] MEDS: INSULIN GLARGINE 100 UNIT/ML 10 ML VIAL SQ SCH (17:59)
[2016-12-04 20:05] LABS: Glucose,Whole Blood 202 mg/dL (75-99)
[2016-12-04] MEDS: ATORVASTATIN 80 MG TAB PO SCH (20:12)
[2016-12-04] MEDS: HYDROcodone/APAP 5-325MG 1 EACH TAB PO PRN (21:25)
--- NOTE | 2016-12-04 22:57 | PN ---
DATE OF SERVICE: 12/04/2016 This 66-year-old gentleman who was admitted with multiple medical problems and change in mental status also had significant malignancy and old strokes, also. Sensorium is improved significantly. 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 No chest pain. No palpitations. No fever. On exam alert and oriented times two. Pulse 88, blood pressure 99/57, respirations 18, temperature 97.4. Pulse ox 97% on 2 L. HEENT: Conjunctivae normal . NECK: No jugular venous distention. CARDIOVASCULAR: S1, S2 muffled. RESPIRATORY: Breath sounds diminished at the bases. A few scattered rhonchi and crackles. ABDOMEN: Soft, nontender. LEGS: No edema. No swelling. CENTRAL NERVOUS SYSTEM: Diffusely weak. LABS: WBC 6.1, hemoglobin 11.4, sodium 135. ASSESSMENT: 1. Change in mental status, multifactorial, possible acute metabolic encephalopathy. 2. Uncontrolled diabetes mellitus type 2 without evidence of diabetic ketoacidosis. 3. Lung cancer with brain metastases. 4. 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 5. Respiratory failure secondary to acute hypoxic respiratory failure, possible chronic obstructive pulmonary disease, acute exacerbation, present on admission. 6. Possible hemorrhagic metastatic lesion in the left occipital region, which is stable on recent repeat CT scan of the brain. 7. Atrial fibrillation history, paroxysmal. 8. History of coronary artery disease. 9. History of cerebrovascular accident, transient ischemic attack. 10. History of diabetes mellitus type 2. 11. History of essential hypertension. 12. Hyperlipidemia. 13. History of nicotine dependence. 14. Obesity. 15. Hyponatremia. 16. Hyperkalemia. 17. Hypochloremia. 18. Increased BUN. 19. Hypoalbuminemia with mild to moderate protein calorie malnutrition. 20. NO CODE. NO CPR. NO VENT. RECOMMENDATIONS AND DISCUSSION: In this 66-year-old gentleman who presented with multiple complex medical issues, we will monitor the patient closely. Continue the current medications. Continue symptomatic treatment. Otherwise at this time, I recommend continuing with current medications. PT, OT evaluation. Closely monitor. Possible ECF rehab. Further recommendations to follow.
[2016-12-05 02:03] LABS: Glucose,Whole Blood 126 mg/dL (75-99)
[2016-12-05] MEDS: INSULIN LISPRO (humaLOG) 300 UNIT/3 ML VIAL SQ SCH ×5 (02:18→20:19)
[2016-12-05 06:47] LABS: CH 33.5; CHCM 32.8; HCT 31.6 % (39.0-53.0); HDW 2.02; HGB 10.6 gm/dL (13.0-17.5); Immature Gran Flag Marked; MCH 34.4 pg (25.0-35.0); MCHC 33.6 g/dL (31.0-37.0); MCV 102.5 fL (80.0-100.0); Macrocytosis Slight; Mean Platelet Volume 7.2; RBC 3.08 m/uL (4.30-5.90); RDW 12.9 % (11.5-15.5); WBC 7.8 k/uL (3.8-10.6); WBC (Perox) 7.83
[2016-12-05 06:52] LABS: Anion Gap 3 mmol/L; Blood Urea Nitrogen 22 mg/dL (9-20); Calcium 7.8 mg/dL (8.4-10.2); Carbon Dioxide 27 mmol/L (22-30); Chloride 103 mmol/L (98-107); Glucose 101 mg/dL (74-99); Non-African American GFR(MDRD) >60 (>60 ml/min/1.73 sqM); Potassium 4.2 mmol/L (3.5-5.1); Sodium 133 mmol/L (137-145)
[2016-12-05 07:19] LABS: Glucose,Whole Blood 101 mg/dL (75-99)
[2016-12-05] MEDS: metFORMIN 500 MG TAB PO SCH ×2 (08:08→17:46)
[2016-12-05] MEDS: GABAPENTIN 300 MG CAP PO SCH ×2 (08:08→20:00)
[2016-12-05] MEDS: DOCUSATE 100 MG CAP PO SCH ×2 (08:08→20:00)
[2016-12-05] MEDS: DEXAMETHASONE 2 MG TAB PO SCH (08:08)
[2016-12-05] MEDS: AMIODARONE 200 MG TAB PO SCH (08:09)
[2016-12-05] MEDS: levETIRAcetam 500 MG TAB PO SCH ×2 (08:10→20:00)
[2016-12-05] MEDS: LISINOPRIL 10 MG TAB PO SCH (08:10)
[2016-12-05] MEDS: amLODIPine 5 MG TAB PO SCH (08:10)
[2016-12-05] MEDS: LEVOFLOXACIN 500 MG TAB PO SCH (08:10)
[2016-12-05] MEDS: PANTOPRAZOLE 40 MG TABLET PO SCH ×2 (08:11→20:00)
[2016-12-05] MEDS: MEGESTROL 400 MG/10 ML CUP PO SCH (08:11)
[2016-12-05] MEDS: ALBUTEROL NEBULIZED 2.5 MG/3 ML INHALATION SCH ×4 (08:16→20:18)
[2016-12-05] MEDS: HYDROcodone/APAP 5-325MG 1 EACH TAB PO PRN ×3 (09:47→19:40)
[2016-12-05 11:01] LABS: Add Differential Manual Differential
[2016-12-05 11:18] LABS: Band Neutrophils % 10.5 %; Manual Review Performed; Myelocytes % 1.5 %; Nucleated Red Blood Cells 0 /100 WBC (0-0); Total Cells Counted 200
[2016-12-05 11:36] LABS: Glucose,Whole Blood 198 mg/dL (75-99)
[2016-12-05 16:57] LABS: Glucose,Whole Blood 229 mg/dL (75-99)
[2016-12-05] MEDS: LORazepam 2 MG/ML SYRINGE IV PRN (17:43)
[2016-12-05] MEDS: INSULIN GLARGINE 100 UNIT/ML 10 ML VIAL SQ SCH (17:45)
[2016-12-05] MEDS: ATORVASTATIN 80 MG TAB PO SCH (20:00)
[2016-12-05 20:10] LABS: Glucose,Whole Blood 285 mg/dL (75-99)
--- NOTE | 2016-12-05 21:53 | PN ---
DATE OF SERVICE: 12/05/2016 This 66-year-old gentleman who was admitted with a change in mental status had a possible acute metabolic encephalopathy. Patient had uncontrolled diabetes mellitus type 2. The family is contemplating ECF versus hospice home. The sensorium remains unchanged. Patient complains of generalized tiredness and weakness. On exam, pulse is 80, blood pressure is 108/58, respirations 18, temperature 97.6, pulse ox 96% on 2L. HEENT: Conjunctivae normal. NECK: No jugular venous distension. CARDIOVASCULAR: S1 and S2 muffled. RESPIRATORY: Breath sounds diminished in the bases. A few scattered rhonchi. No crackles. Expiratory wheezing also present. ABDOMEN: Soft, nontender. LEGS: No edema. NERVOUS SYSTEM: Nonfocal. LABS: WBC 7.8, hemoglobin is 10.2. Sodium 133. ASSESSMENT: 1. Change in mental status, multifactorial, possible acute metabolic encephalopathy, present on admission. 2. Uncontrolled diabetes type 2 without any evidence for diabetic ketoacidosis, present on admission. 3. Lung cancer with brain metastases, present on admission. 4. 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 5. Acute hypoxic respiratory failure secondary to possible chronic obstructive pulmonary disease acute exacerbation, present on admission, possibly hemorrhagic metastatic lesion in the left occipital region, which is stable on the recent repeat CT scan of the brain. 6. Atrial fibrillation, paroxysmal. 7. Coronary artery disease. 8. History of cerebrovascular accident, transient ischemic attack. 9. History of diabetes mellitus type 2. 10. History of essential hypertension. 11. Hyperlipidemia. 12. History of nicotine dependence. 13. Obesity. 14. Hyponatremia. 15. Hyperkalemia. 16. Hypochloremia. 17. Increased BUN. 18. Hypoalbuminemia with mild to moderate protein-calorie malnutrition. 19. NO CODE, NO CARDIOPULMONARY RESUSCITATION, NO VENTILATOR. RECOMMENDATIONS AND DISCUSSION: Continue the current medications. Continue symptomatic treatment. Continue with PT, OT evaluation. Social Work and Case Management to work toward ECF versus hospice. Prognosis guarded. Further recommendations to follow.
[2016-12-06] MEDS: HYDROcodone/APAP 5-325MG 1 EACH TAB PO PRN ×5 (00:08→19:17)
[2016-12-06 01:56] LABS: Glucose,Whole Blood 139 mg/dL (75-99)
[2016-12-06] MEDS: ACETAMINOPHEN TAB 500 MG TAB PO PRN (01:59)
[2016-12-06] MEDS: INSULIN LISPRO (humaLOG) 300 UNIT/3 ML VIAL SQ SCH ×5 (03:08→20:29)
[2016-12-06 06:03] LABS: CH 33.6; CHCM 33.4; HCT 30.9 % (39.0-53.0); HDW 2.05; HGB 10.5 gm/dL (13.0-17.5); Immature Gran Flag Moderate; MCH 34.2 pg (25.0-35.0); MCHC 33.9 g/dL (31.0-37.0); MCV 100.8 fL (80.0-100.0); Mean Platelet Volume 7.9; RBC 3.06 m/uL (4.30-5.90); RDW 12.9 % (11.5-15.5); WBC 7.5 k/uL (3.8-10.6); WBC (Perox) 7.87
[2016-12-06 06:07] LABS: Anion Gap 4 mmol/L; Blood Urea Nitrogen 19 mg/dL (9-20); Calcium 7.7 mg/dL (8.4-10.2); Carbon Dioxide 28 mmol/L (22-30); Chloride 101 mmol/L (98-107); Glucose 106 mg/dL (74-99); Non-African American GFR(MDRD) >60 (>60 ml/min/1.73 sqM); Potassium 4.5 mmol/L (3.5-5.1); Sodium 133 mmol/L (137-145)
[2016-12-06 06:37] LABS: Add Differential Manual Differential
[2016-12-06 06:40] LABS: Band Neutrophils % 10.5 %; Manual Review Performed; Myelocytes % 3.5 %; Nucleated Red Blood Cells 0 /100 WBC (0-0); Total Cells Counted 200
[2016-12-06 06:41] LABS: RBC Morphology Normal
[2016-12-06 07:33] LABS: Glucose,Whole Blood 104 mg/dL (75-99)
[2016-12-06] MEDS: ALBUTEROL NEBULIZED 2.5 MG/3 ML INHALATION SCH ×4 (08:49→20:42)
[2016-12-06] MEDS: metFORMIN 500 MG TAB PO SCH ×2 (09:14→18:16)
[2016-12-06] MEDS: AMIODARONE 200 MG TAB PO SCH (09:16)
[2016-12-06] MEDS: amLODIPine 5 MG TAB PO SCH (09:16)
[2016-12-06] MEDS: LISINOPRIL 10 MG TAB PO SCH (09:17)
[2016-12-06] MEDS: LEVOFLOXACIN 500 MG TAB PO SCH (09:17)
[2016-12-06] MEDS: levETIRAcetam 500 MG TAB PO SCH ×2 (09:17→20:29)
[2016-12-06] MEDS: DOCUSATE 100 MG CAP PO SCH ×2 (09:17→20:29)
[2016-12-06] MEDS: DEXAMETHASONE 2 MG TAB PO SCH (09:17)
[2016-12-06] MEDS: GABAPENTIN 300 MG CAP PO SCH ×2 (09:17→20:29)
[2016-12-06] MEDS: PANTOPRAZOLE 40 MG TABLET PO SCH ×2 (09:18→20:29)
[2016-12-06] MEDS: MEGESTROL 400 MG/10 ML CUP PO SCH (09:18)
[2016-12-06 11:28] LABS: Glucose,Whole Blood 148 mg/dL (75-99)
--- NOTE | 2016-12-06 14:22 | DS ---
PROGRESS NOTE AND DISCHARGE SUMMARY DATE OF ADMISSION: 11/28/2016 DATE OF DISCHARGE: This s a 66-year-old admitted with altered mental status and was treated for toxic metabolic encephalopathy secondary to COPD exacerbation and patient has toxic metabolic encephalopathy, probably from COPD exacerbation. As per the previous dictations I can see what appears like patient's confusion is mostly related metastatic lung cancer and patient already received 10 dose of Opdivo therapy. We do not have much options except for comfort care and hospice which is the most appropriate thing, but anyways Oncology will evaluate the patient again today and hospice will see the patient today and I had extensive discussion with the family regarding hospice, the most appropriate care for the patient considering that he failed even immunotherapy, continued to get worse. 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 REVIEW OF SYSTEMS: GENERAL: Patient is complaining of generalized tiredness and extensive weakness. CARDIOVASCULAR: No chest pain, no orthopnea, no PND, no palpitations. PULMONARY: Denied any shortness of breath. No cough or hemoptysis. GASTROINTESTINAL: No diarrhea, nausea or vomiting. No abdominal pain. Normoactive bowel sounds. NEUROLOGIC: No headaches, no weakness, no numbness. PHYSICAL EXAMINATION: Temperature 98.3, pulse was 75, respiratory rate of 18, blood pressure is 112/65, saturating at 97% on 2 L of O2 by nasal cannula. GENERAL: Patient appears to be in distress because of generalized weakness. LUNG EXAMINATION: Bibasilar crackles were appreciated, probably from atelectasis. HEENT: Pupils are round and equally reacting to light. EOMI. No scleral icterus. No conjunctival pallor. Normocephalic, atraumatic. No pharyngeal erythema. No thyromegaly. CARDIOVASCULAR: S1 and S2 present. No murmurs, rubs, or gallops. ABDOMEN: Soft, nontender, nondistended, normoactive bowel sounds. No palpable organomegaly. MUSCULOSKELETAL: No joint swelling or deformity. EXTREMITIES: No cyanosis, clubbing, or pedal edema. NEUROLOGICAL: Gross neurological examination did not reveal any focal deficits. SKIN: No rashes. LABORATORY DATA: CBC and BMP are abnormal for low sodium of 133. Low-sodium is secondary to probably SIADH as mentioned above. ASSESSMENT AND PLAN: 1. Altered mental status most probably secondary to metastatic disease of his lung cancer. 2. Lung cancer, completed his Opdivo therapy, most probably patient will be discharged to hospice. 3. Type 2 diabetes mellitus. 4. Hypertension. 5. Patient is hypotensive. Amlodipine will be discontinued. Presently, patient is on Decadron and if patient opts out of to cancer, the patient will need to be discharged on Decadron at that time For now will continue with antihypertensives unless family officially opt for hospice. Same thing with the other medical problems. All the other medications will be continued until patient's family has a decision regarding hospice. 6. Acute hypercapnic respiratory failure secondary to chronic obstructive pulmonary disease exacerbation which completely resolved at this point of time except for minimal wheezing on exam. 7. Paroxysmal atrial fibrillation. 8. Coronary artery disease. 9. Cerebrovascular accident with transient ischemic attacks in the past. 10. Hypertension. 11. Hyperlipidemia. 12. Mild protein calorie malnutrition from cancer and cancer cachexia. Spent greater than 35 minutes in total discharge process. Please refer to my depart summary for the list of discharge medications. Discharge diet as tolerated and regular. Disposition as mentioned above either to ECF or hospice.
[2016-12-06 17:22] LABS: Glucose,Whole Blood 123 mg/dL (75-99)
[2016-12-06] MEDS: HYDROmorphone 1 MG/ML 1 ML SYRINGE IVP PRN ×2 (17:23→22:58)
[2016-12-06] MEDS: INSULIN GLARGINE 100 UNIT/ML 10 ML VIAL SQ SCH (18:16)
[2016-12-06 20:13] LABS: Glucose,Whole Blood 119 mg/dL (75-99)
[2016-12-06] MEDS: ATORVASTATIN 80 MG TAB PO SCH (20:29)
[2016-12-07] MEDS: HYDROcodone/APAP 5-325MG 1 EACH TAB PO PRN ×3 (02:10→15:53)
[2016-12-07 02:48] LABS: Glucose,Whole Blood 82 mg/dL (75-99)
[2016-12-07] MEDS: INSULIN LISPRO (humaLOG) 300 UNIT/3 ML VIAL SQ SCH ×4 (03:09→18:20)
[2016-12-07 06:01] LABS: CH 33.4; CHCM 32.4; HCT 34.2 % (39.0-53.0); HDW 1.92; HGB 11.1 gm/dL (13.0-17.5); Immature Gran Flag Slight; MCH 33.5 pg (25.0-35.0); MCHC 32.3 g/dL (31.0-37.0); MCV 103.5 fL (80.0-100.0); Macrocytosis Slight; Mean Platelet Volume 7.3; RDW 13.2 % (11.5-15.5); WBC 8.6 k/uL (3.8-10.6); WBC (Perox) 9.03
[2016-12-07 06:07] LABS: Anion Gap 4 mmol/L; Blood Urea Nitrogen 19 mg/dL (9-20); Calcium 7.9 mg/dL (8.4-10.2); Carbon Dioxide 29 mmol/L (22-30); Chloride 102 mmol/L (98-107); Glucose 65 mg/dL (74-99); Non-African American GFR(MDRD) >60 (>60 ml/min/1.73 sqM); Potassium 4.3 mmol/L (3.5-5.1); Sodium 135 mmol/L (137-145)
[2016-12-07 06:23] LABS: Add Differential Manual Differential
[2016-12-07 06:25] LABS: Nucleated Red Blood Cells 0 /100 WBC (0-0); Total Cells Counted 100
[2016-12-07 06:26] LABS: Manual Review Performed
[2016-12-07 07:25] LABS: Glucose,Whole Blood 60 mg/dL (75-99)
[2016-12-07 07:48] LABS: Glucose,Whole Blood 66 mg/dL (75-99)
[2016-12-07] MEDS: ALBUTEROL NEBULIZED 2.5 MG/3 ML INHALATION SCH ×3 (08:00→15:45)
[2016-12-07] MEDS ORDERED: DEXTROSE 50%-WATER 50 ML SYRINGE IVP ONE (08:12)
[2016-12-07 08:20] LABS: Glucose,Whole Blood 69 mg/dL (75-99)
[2016-12-07 08:24] VITALS: RESP 18
[2016-12-07 08:44] LABS: Glucose,Whole Blood 88 mg/dL (75-99)
[2016-12-07] MEDS: LISINOPRIL 10 MG TAB PO SCH (08:59)
[2016-12-07] MEDS: AMIODARONE 200 MG TAB PO SCH (08:59)
[2016-12-07] MEDS: PANTOPRAZOLE 40 MG TABLET PO SCH (08:59)
[2016-12-07] MEDS: amLODIPine 5 MG TAB PO SCH (08:59)
[2016-12-07] MEDS: MEGESTROL 400 MG/10 ML CUP PO SCH (08:59)
[2016-12-07] MEDS: metFORMIN 500 MG TAB PO SCH ×2 (08:59→13:24)
[2016-12-07] MEDS: DEXAMETHASONE 2 MG TAB PO SCH (08:59)
[2016-12-07] MEDS: DOCUSATE 100 MG CAP PO SCH (09:00)
[2016-12-07] MEDS: levETIRAcetam 500 MG TAB PO SCH (09:00)
[2016-12-07] MEDS: LEVOFLOXACIN 500 MG TAB PO SCH (09:00)
[2016-12-07] MEDS: GABAPENTIN 300 MG CAP PO SCH (09:00)
[2016-12-07 11:35] LABS: Glucose,Whole Blood 161 mg/dL (75-99)
--- NOTE | 2016-12-07 11:45 | PN ---
Consider my yesterday's discharge summary as progress note. A 66-year-old came in with altered mental status. Patient failed therapy with Opdivo in the past and patient's family did make patient apparent hospice yesterday. I believe the hospice is the only option we have at this point of time and patient and family decided to go with hospice and patient will be maintained on hospice here until he is discharged tomorrow to hospice house. Patient is not in any pain. REVIEW OF SYSTEMS: GENERAL: Tiredness. CARDIOVASCULAR: No chest pain, no orthopnea, no PND, no palpitations. PULMONARY: Denied any shortness of breath. No cough or hemoptysis. GASTROINTESTINAL: No diarrhea, nausea or vomiting. No abdominal pain. Normoactive bowel sounds. NEUROLOGIC: No headaches, no weakness, no numbness. PHYSICAL EXAM: VITAL SIGNS: Temperature 97.9, pulse of 96, respiratory rate of 18, blood pressure is 118/70, saturating at 94% on 2 L of O2 by nasal cannula. GENERAL EXAMINATION: Patient is excessively tired, alert, oriented times almost 3. Patient appears to be depressed. HEENT: Pupils are round and equally reacting to light. EOMI. No scleral icterus. No conjunctival pallor. Normocephalic, atraumatic. No pharyngeal erythema. No thyromegaly. CARDIOVASCULAR: S1 and S2 present. No murmurs, rubs, or gallops. PULMONARY: Chest is clear to auscultation, no wheezing or crackles. ABDOMEN: Soft, nontender, nondistended, normoactive bowel sounds. No palpable organomegaly. MUSCULOSKELETAL: No joint swelling or deformity. EXTREMITIES: No cyanosis, clubbing, or pedal edema. NEUROLOGICAL: Gross neurological examination did not reveal any focal deficits. SKIN: No rashes. LABORATORY DATA: Irrelevant at this point of time. FINAL DIAGNOSES: 1. Altered mental status secondary to metastatic lung disease. 2. Squamous cell carcinoma, completed Opdivo therapy in the past. 3. Type 2 diabetes mellitus. 4. Hypertension. 5. Acute hypercapnic respiratory failure secondary to chronic obstructive pulmonary disease exacerbation for which patient received treatment. 6. Paroxysmal atrial fibrillation, coronary artery disease, cerebrovascular accident. 7. Hyperlipidemia. 8. Mild to moderate protein calorie malnutrition. PLAN: Patient will be initiated on hospice here. Patient probably will be discharged to hospice house tomorrow.
[2016-12-07] MEDS ORDERED: ONDANSETRON 4 MG/2 ML VIAL IVP PRN (11:56)
[2016-12-07] MEDS: HYDROmorphone 1 MG/ML 1 ML SYRINGE IVP PRN ×2 (15:00→18:17)
[2016-12-07 15:30] VITALS: BP 101/56; PULSE 89; TEMP 98.3
[2016-12-07] MEDS: LORazepam 2 MG/ML SYRINGE IV PRN (16:33)
[2016-12-07 17:28] LABS: Glucose,Whole Blood 132 mg/dL (75-99)
[2016-12-07] MEDS: INSULIN GLARGINE 100 UNIT/ML 10 ML VIAL SQ SCH (18:19)
--- NOTE | 2016-12-09 11:32 | PN ---
Patient is a 66-year-old admitted with respiratory failure, and patient has metastatic squamous cell cancer. He failed therapy with ( ). Patient was subsequently made hospice. Patient was discharged yesterday. As there are no beds available in the hospice facility, patient ended up staying here. I saw and evaluated the patient today. Patient is lying comfortably in the bed, is not requiring any opiates for pain or comfort, and patient will be discharged to hospice facility today. Please refer to my dictation of discharge summary from yesterday for further details.
[2016-12-14 10:32] LABS: Glucose,Whole Blood 132 mg/dL (75-99)
--- NOTE | 2016-12-20 09:22 | EEG ---
DATE OF SERVICE: 11/30/2016 REASON FOR TESTING: Altered mental status. AGE: 66Y DESCRIPTION OF THE PROCEDURE: This EEG was performed using a 21-channel digital electroencephalograph, following the international 10 - 20 system. DESCRIPTION OF THE RECORDING: From the beginning of the tracing, and with the patient's eyes closed, the background rhythm was mostly consisting of 6 Hz theta frequency in the posterior occipital leads. No obvious asymmetry is seen. Photic stimulation was performed with a minimal driving response seen. No pathological waves were elicited. Occasional movement artifacts are seen. Hyperventilation was not performed. Later in the tracing, the patient does reach stage II of sleep and occasional sleep spindles are seen. No epileptiform discharges were seen. His EKG lead showed a regular rate and rhythm. INTERPRETATION: This asleep and awake EEG is abnormal due to the presence of generalized slowing of the background rhythm, mostly in the theta range. This is consistent with mild encephalopathy. No epileptiform discharges were seen. The absence of epileptiform discharges does not rule out the diagnosis of epilepsy, therefore, clinical correlation is recommended.
== END 2016-12-07 19:36 | disposition hospice, inpatient (51) | DRG 637 ==
LOC: EC 19:17 → 5MS5E 20:48 → 5ONC 11-30 15:29
PROVIDERS: ADMIT Hospitalist; ATTEND Hospitalist
DX: E11.65 Type 2 diabetes mellitus with hyperglycemia (principal); G93.41 Metabolic encephalopathy; J96.01 Acute respiratory failure with hypoxia; J96.02 Acute respiratory failure with hypercapnia; E44.0 Moderate protein-calorie malnutrition; C79.31 Secondary malignant neoplasm of brain; C34.90 Malignant neoplasm of unspecified part of unspecified bronchus or lung; J44.1 Chronic obstructive pulmonary disease with (acute) exacerbation; E22.2 Syndrome of inappropriate secretion of antidiuretic hormone; I95.9 Hypotension, unspecified; E87.8 Other disorders of electrolyte and fluid balance, not elsewhere classified; D69.6 Thrombocytopenia, unspecified; E86.0 Dehydration; E87.5 Hyperkalemia; D64.9 Anemia, unspecified; E66.9 Obesity, unspecified; E78.5 Hyperlipidemia, unspecified; I10 Essential (primary) hypertension; I25.10 Atherosclerotic heart disease of native coronary artery without angina pectoris; I48.0 Paroxysmal atrial fibrillation; Z79.84 Long term (current) use of oral hypoglycemic drugs; Z79.899 Other long term (current) drug therapy; Z87.891 Personal history of nicotine dependence; Z80.9 Family history of malignant neoplasm, unspecified; Z66 Do not resuscitate
CPT/HCPCS: 36415; 70450; 71010; 74022; 80048; 80053; 80171; 81003; 82009; 82550; 82553; 83036; 84484; 85025; 85610; 85730; 87086; 87324; 93005; 94640; 94760; 95819

== ENCOUNTER 2016-12-07 19:40 | Inpatient (IN) | payer OTHER ==
[2016-12-07] MEDS ORDERED: HYDROcodone/APAP 5-325MG 1 EACH TAB PO PRN (20:06)
[2016-12-07] MEDS ORDERED: ALBUTEROL NEBULIZED 2.5 MG/3 ML INHALATION PRN (20:07)
[2016-12-07] MEDS ORDERED: DEXAMETHASONE SOD PHOSPHATE 4 MG/ML 1 ML VIAL IV PRN (20:10)
[2016-12-07] MEDS ORDERED: AMIODARONE 100 MG TAB PO STA (20:16)
[2016-12-07] MEDS ORDERED: LORazepam 2 MG/ML SYRINGE IV PRN (20:16)
[2016-12-07] MEDS ORDERED: ACETAMINOPHEN TAB 500 MG TAB PO PRN (20:16)
[2016-12-07] MEDS ORDERED: ONDANSETRON 4 MG/2 ML VIAL IVP PRN (20:18)
[2016-12-07] MEDS: ATORVASTATIN 80 MG TAB PO SCH (21:02)
[2016-12-07] MEDS: INSULIN LISPRO (humaLOG) 300 UNIT/3 ML VIAL SQ SCH (21:02)
[2016-12-07] MEDS: GABAPENTIN 300 MG CAP PO SCH (21:02)
[2016-12-07] MEDS: DOCUSATE 100 MG CAP PO SCH (21:02)
[2016-12-07] MEDS: levETIRAcetam 500 MG TAB PO SCH (21:03)
[2016-12-07] MEDS: HYDROmorphone 1 MG/ML 1 ML SYRINGE IVP PRN (22:31)
[2016-12-07 23:11] VITALS: BMI 30.8
[2016-12-08 03:21] LABS: Glucose,Whole Blood 119 mg/dL (75-99)
[2016-12-08] MEDS: INSULIN LISPRO (humaLOG) 300 UNIT/3 ML VIAL SQ SCH ×5 (03:51→21:22)
[2016-12-08] MEDS: HYDROmorphone 1 MG/ML 1 ML SYRINGE IVP PRN ×3 (05:17→18:51)
[2016-12-08 07:32] LABS: Glucose,Whole Blood 108 mg/dL (75-99)
[2016-12-08] MEDS: MEGESTROL 400 MG/10 ML CUP PO SCH (09:22)
[2016-12-08] MEDS: LISINOPRIL 10 MG TAB PO SCH (09:23)
[2016-12-08] MEDS: GABAPENTIN 300 MG CAP PO SCH ×2 (09:23→21:22)
[2016-12-08] MEDS: LEVOFLOXACIN 500 MG TAB PO SCH (09:23)
[2016-12-08] MEDS: DOCUSATE 100 MG CAP PO SCH ×2 (09:23→21:21)
[2016-12-08] MEDS: levETIRAcetam 500 MG TAB PO SCH ×2 (09:23→21:22)
[2016-12-08] MEDS: amLODIPine 5 MG TAB PO SCH (09:24)
[2016-12-08] MEDS: AMIODARONE 100 MG TAB PO SCH (09:24)
[2016-12-08] MEDS: metFORMIN 500 MG TAB PO SCH ×2 (09:24→17:58)
[2016-12-08] MEDS: DEXAMETHASONE 2 MG TAB PO SCH (09:24)
[2016-12-08] MEDS: PANTOPRAZOLE 40 MG TABLET PO SCH ×2 (09:24→17:58)
[2016-12-08 11:40] LABS: Glucose,Whole Blood 126 mg/dL (75-99)
[2016-12-08] MEDS ORDERED: INSULIN GLARGINE 100 UNIT/ML 10 ML VIAL SQ SCH ×2 (16:00→18:00)
[2016-12-08] MEDS ORDERED: ATROPINE OPHTH SOLN 1% 5ML BTL SUBLINGUAL PRN ×2 (17:24)
[2016-12-08 17:26] LABS: Glucose,Whole Blood 129 mg/dL (75-99)
[2016-12-08] MEDS: ATORVASTATIN 80 MG TAB PO SCH (21:21)
[2016-12-08 21:29] LABS: Glucose,Whole Blood 161 mg/dL (75-99)
[2016-12-08 23:44] VITALS: RESP 18
[2016-12-09 02:53] LABS: Glucose,Whole Blood 109 mg/dL (75-99)
[2016-12-09] MEDS: INSULIN LISPRO (humaLOG) 300 UNIT/3 ML VIAL SQ SCH ×3 (04:10→12:50)
[2016-12-09] MEDS: HYDROmorphone 1 MG/ML 1 ML SYRINGE IVP PRN ×2 (05:22→13:18)
[2016-12-09 07:05] LABS: Glucose,Whole Blood 76 mg/dL (75-99)
[2016-12-09 07:39] VITALS: BP 113/56; PULSE 79; TEMP 97.6
[2016-12-09] MEDS: PANTOPRAZOLE 40 MG TABLET PO SCH (08:53)
[2016-12-09] MEDS: metFORMIN 500 MG TAB PO SCH (08:53)
[2016-12-09] MEDS: AMIODARONE 100 MG TAB PO SCH (08:54)
[2016-12-09] MEDS: DEXAMETHASONE 2 MG TAB PO SCH (08:54)
[2016-12-09] MEDS: DOCUSATE 100 MG CAP PO SCH (08:54)
[2016-12-09] MEDS: amLODIPine 5 MG TAB PO SCH (08:54)
[2016-12-09] MEDS: LEVOFLOXACIN 500 MG TAB PO SCH (08:55)
[2016-12-09] MEDS: LISINOPRIL 10 MG TAB PO SCH (08:55)
[2016-12-09] MEDS: levETIRAcetam 500 MG TAB PO SCH (08:55)
[2016-12-09] MEDS: GABAPENTIN 300 MG CAP PO SCH (08:55)
[2016-12-09] MEDS: MEGESTROL 400 MG/10 ML CUP PO SCH (08:56)
[2016-12-09 11:59] LABS: Glucose,Whole Blood 111 mg/dL (75-99)
--- NOTE | 2017-01-06 06:58 | DS ---
DATE OF ADMISSION: 12/07/2016 DATE OF DISCHARGE: 12/09/2016 I was asked to dictate the discharge summary but the patient was not even admitted to the hospital to my service.
== END 2016-12-09 15:26 | disposition hospice, inpatient (51) | DRG 54 ==
LOC: 5ONC 19:40
PROVIDERS: ADMIT Hospitalist; ATTEND Hospitalist
DX: C79.31 Secondary malignant neoplasm of brain (principal); G92 Toxic encephalopathy; E22.2 Syndrome of inappropriate secretion of antidiuretic hormone; E44.1 Mild protein-calorie malnutrition; C34.90 Malignant neoplasm of unspecified part of unspecified bronchus or lung; J44.1 Chronic obstructive pulmonary disease with (acute) exacerbation; I95.9 Hypotension, unspecified; E87.8 Other disorders of electrolyte and fluid balance, not elsewhere classified; I48.0 Paroxysmal atrial fibrillation; E11.65 Type 2 diabetes mellitus with hyperglycemia; I10 Essential (primary) hypertension; E87.5 Hyperkalemia; I25.10 Atherosclerotic heart disease of native coronary artery without angina pectoris; E78.5 Hyperlipidemia, unspecified; Z68.30 Body mass index [BMI] 30.0-30.9, adult; Z79.899 Other long term (current) drug therapy; Z87.891 Personal history of nicotine dependence; Z80.9 Family history of malignant neoplasm, unspecified